=== PATIENT | male | born 1950 | race Caucasian/White ===

== ENCOUNTER → 2016-12-26 | Outpatient (CLI) | payer BC ==
[2016-12-26 11:42] LABS: BASOPHILS # (AUTO) 0.04 10*3/UL; BASOPHILS % (AUTO) 0.5 % (0-1); EOSINOPHILS # (AUTO) 0.21 10*3/UL; EOSINOPHILS % (AUTO) 2.8 % (0-8); HEMATOCRIT 49.1 % (42.0-52.0); HEMOGLOBIN 17.5 g/dL (14.0-18.0); MEAN CORPUSCULAR HEMOGLOBIN 31.7 PG (27-31); MEAN CORPUSCULAR HGB CONC 35.6 g/dL (33-37); MEAN CORPUSCULAR VOLUME 88.9 FL (80-90); MEAN PLATELET VOLUME 12.3 FL (7.4-12.2); MONOCYTES # (AUTO) 0.61 10*3/UL (0.3-0.8); MONOCYTES % (AUTO) 8.1 % (5-15); NEUTROPHILS # (AUTO) 5.23 10*3/UL; NEUTROPHILS % (AUTO) 69.6 % (50-80); RED BLOOD COUNT 5.52 10^6/uL (4.70-6.10)
[2016-12-26 11:43] LABS: BLOOD UREA NITROGEN 25 mg/dL (7-22); BUN/CREATININE RATIO 22.72 (6-20); EST GLOMERULAR FILTRATION > 60 (>60 ml/min/1.73m(2)); SERUM ALBUMIN 4.7 g/dL (3.5-4.8)
[2016-12-26 11:44] LABS: CHOL/HDL RATIO 4.01 RATIO (0-4.0); LDL CHOLESTEROL,CALCULATED 146.4 mg/dL
[2016-12-26 12:04] LABS: PLATELET MORPHOLOGY COMMENT NORMAL MORPHOLOGY (NORM); RBC MORPHOLOGY COMMENT NORMAL MORPHOLOGY (NORM); WBC MORPHOLOGY COMMENT NORMAL MORPHOLOGY (NORM)
[2016-12-26 12:10] LABS: BILIRUBIN,URINE NEGATIVE (NEG); CLARITY,URINE CLEAR (CLEAR); COLOR,URINE YELLOW; GLUCOSE, URINE (UA) NEGATIVE (NEG); NITRATE,URINE NEGATIVE (NEG); OCCULT BLOOD,URINE NEGATIVE (NEG); PH,URINE 7.5 (5.0-8.5); PROTEIN,URINE NEGATIVE (NEG); UROBILINOGEN,URINE 0.2 mg/dL (0.2)
[2016-12-26 12:13] LABS: RBC,URINE 0 /hpf; SQUAMOUS EPITHELIAL CELL,UR RARE; WBC,URINE 0
[2016-12-26 16:06] LABS: URINE SAMPLE TYPE VOIDED SPECIMEN
== END ==
LOC: MOB LAB 10:01
DX: I10 Essential (primary) hypertension (principal); K21.9 Gastro-esophageal reflux disease without esophagitis; E78.5 Hyperlipidemia, unspecified; E55.9 Vitamin D deficiency, unspecified; Z12.5 Encounter for screening for malignant neoplasm of prostate
CPT/HCPCS: 36415; 80053; 80061; 81001; 82306; 84443; 85025; G0103

== ENCOUNTER 2017-07-23 10:13 | Inpatient (IN) ==
[~2017-07-23 10:13] MED LIST: BUPIVACAINE SPLASH ONE; BUPivacaine Liposome/PF (Exparel) Inj 20ml vial INFIL ONE; KETOROLAC SPLASH ONE; LIDOCAINE W/ SODIUM BICARB 0.5 ML SYR ONE; LIDOCAINE W/ SODIUM BICARB 0.5 ML SYR SUBD ONE; Lactated Ringers 1,000 ML PRIMARY IV ONE; MORPHINE SPLASH ONE; TRANEXAMIC ACID 1,000 MG / 10 ML VIAL ONE; Tranexamic Acid 1,000 MG in Sodium Chloride 0.9% 100 ML IV SCH; ceFAZolin Inj 2gm (Premix) 0 GM/0 ML BAG IV ONE; ceFAZolin Inj 2gm (Premix) 2 GM/50 ML BAG IV ONE
[2017-07-23] MEDS ORDERED: Sodium Chloride 0.9% 0 ML ONE ×2 (10:15)
[2017-07-23] MEDS ORDERED: BUPivacaine Liposome/PF (Exparel) Inj 20ml vial INFIL ONE (10:17)
[2017-07-23] MEDS ORDERED: Sodium Chloride 0.9% vial 0 ML ONE (10:17)
[2017-07-23] MEDS ORDERED: Gentamicin Inj 40 MG/ML VIAL ONE (10:17)
[2017-07-23] MEDS: Lactated Ringers 1,000 ML PRIMARY IV SCH (10:27)
[2017-07-26] MEDS ORDERED: Tranexamic Acid 1,000 MG in Sodium Chloride 0.9% 100 ML IV SCH (06:00)
[2017-07-26] MEDS ORDERED: MORPHINE SPLASH ONE ×3 (06:00)
[2017-07-26] MEDS ORDERED: LIDOCAINE W/ SODIUM BICARB 0.5 ML SYR SUBD ONE (06:00)
[2017-07-26] MEDS ORDERED: BUPivacaine Liposome/PF (Exparel) Inj 20ml vial INFIL ONE ×2 (06:00→11:52)
[2017-07-26] MEDS ORDERED: BUPIVACAINE SPLASH ONE ×3 (06:00)
[2017-07-26] MEDS ORDERED: ceFAZolin Inj 2gm (Premix) 2 GM/50 ML BAG IV ONE (06:00)
[2017-07-26] MEDS ORDERED: KETOROLAC SPLASH ONE ×3 (06:00)
[2017-07-26] MEDS: Lactated Ringers 1,000 ML PRIMARY IV SCH ×3 (10:25→20:34)
[2017-07-26 11:10] LABS: BILIRUBIN,URINE NEGATIVE (NEG); CLARITY,URINE CLEAR (CLEAR); COLOR,URINE YELLOW (Y); GLUCOSE, URINE (UA) NEGATIVE (NEG); OCCULT BLOOD,URINE NEGATIVE (NEG); PROTEIN,URINE NEGATIVE (NEG); UROBILINOGEN,URINE 0.2 EU/dL (0.2)
[2017-07-26] MEDS ORDERED: DEXAMETHASONE PF 10 MG/1 ML VIAL ONE (11:20)
[2017-07-26] MEDS ORDERED: fentaNYL Inj 250 MCG/5 ML VIAL ONE (11:20)
[2017-07-26] MEDS ORDERED: BUPIVACAINE 0.5% W/EPI MPF -30 ML VIAL IV ONE (11:21)
[2017-07-26] MEDS ORDERED: MIDAZOLAM 5 MG/1 ML ONE (11:21)
[2017-07-26] MEDS ORDERED: Sodium Chloride 0.9% vial 40 ML ONE (11:52)
[2017-07-26] MEDS ORDERED: BACITRACIN 50,000 UNIT VIAL IRRIG ONE (11:52)
[2017-07-26] MEDS ORDERED: Sodium Chloride 0.9% 0 ML ONE (11:59)
[2017-07-26] MEDS ORDERED: Sodium Chloride 0.9% 250 ML IV ONE (11:59)
[2017-07-26] MEDS ORDERED: ROCURONIUM 10 MG/1 ML - 5 ML VIAL IVP ONE (12:28)
[2017-07-26] MEDS ORDERED: LIDOCAINE MPF 2% - 5 ML (20 MG/1 ML) ONE (12:29)
[2017-07-26] MEDS ORDERED: KETAMINE HCL 100 MG/ML SYRINGE ONE (12:29)
[2017-07-26] MEDS ORDERED: TRANEXAMIC ACID 1,000 MG / 10 ML VIAL ONE (13:02)
[2017-07-26] MEDS ORDERED: LIDOCAINE W/ SODIUM BICARB 0.5 ML SYR SUBD PRN (13:51)
[2017-07-26] MEDS ORDERED: HYDROmorphone 2 MG/1 ML IVP PRN ×2 (13:51→17:04)
[2017-07-26] MEDS ORDERED: NORMAL SALINE 10 ML SYRINGE FLUSH IVP PRN ×2 (13:51→17:04)
[2017-07-26] MEDS ORDERED: ATROPINE SULFATE 0.4 MG/1 ML VIAL IVP PRN (13:51)
[2017-07-26] MEDS ORDERED: fentaNYL Inj 100 MCG/2 ML VIAL IVP PRN (13:51)
--- NOTE | 2017-07-26 13:58 | CRNA.PROCE ---
Nerve Block Documentation - - Safety Measures: Time Out Taken, Site Verified - - Type of Nerve Block Used: Right Adductor Canal Nerve Block (Analgesic block for Right Uni.) Position for Nerve Block: Supine Moniters Used During Block: EKG, SPO2, NIBP Oxygen Supplemented: Yes Sedation Used - Enter Amount in Comment Field [ANES.SEDAT]: Midazolam (mg): Yes (2.5), Fentanyl (mcg): Yes (100) Skin Prep Used: ChloroPrep (Twice) Draped: No Technique: Ultrasound Nerve Block Needle Used: EchoBright 100 mm Local Anesthetic - Enter Amt in Comment Field [ANES.LOCNB]: 0.5 % Bupivicaine with Epinephrine 1:200,000 (mL): Yes (30 ml ) Additives to Nerve Blocks: Dexamethasone (mg): Yes (10) Anesthesia Time - Other Weight: 100.244 kg Height: 5 ft 9 in Body Mass Index (BMI): 32.6
[2017-07-26] MEDS ORDERED: Lactated Ringers 1,000 ML PRIMARY IV SCH (14:00)
--- NOTE | 2017-07-26 14:00 | CRNA.PROGR ---
Post Anesthesia Phase II - Post Anesthesia Phase II Patient Stable and Discharged To: Med/Surg Care Assumed By Surgeon: Trev Krishnamurthy MD Temperature: 98.3 F Pulse Rate: 79 Respiratory Rate: 12 Blood Pressure: 96/66 Pulse Ox: 94 Total Matias Score at Discharge: 9 Post Anesthesia Discharge Criteria Met: Yes
--- NOTE | 2017-07-26 14:00 | CRNA.PROGR ---
Anesthesia Time - - Start date: 07/26/17 End date: 07/26/17 - Procedure/Recovery Time Anesthesia : Time In: 12:45 Anesthesia : Time Out: 16:13 Anesthesia : Total Time: 208 - Block Time PreOp Block : Time In: 11:23 PreOp Block : Time Out: 11:50 PreOp Block : Total Time: 27 - Total Anesthesia Time Total Anesthesia Time (minutes): 235 - Other Weight: 100.244 kg Height: 5 ft 9 in Body Mass Index (BMI): 32.6 Physical Status: P2 Anesthesia Type: General Anesthesia : ET (Gerd, Anxiety, Hep c, HTN)
--- NOTE | 2017-07-26 14:01 | CRNA.PROGR ---
Anesthesia Recovery Phase I - Post Anesthesia Evaluation Patient's Condition on Arrival in Phase I: Stable Patient's Condition on Arrival in Phase II: Stable Pain Level: 0
[2017-07-26] MEDS ORDERED: GLYCOPYRROLATE 0.2 MG/1 ML VIAL ONE (14:09)
[2017-07-26] MEDS ORDERED: Lactated Ringers 1,000 ML PRIMARY IV ONE ×2 (14:42→17:18)
--- NOTE | 2017-07-26 16:36 | ORTHO.OP ---
- - -: See Dictated Operative Report Procedure Codes - Lower Extremity/Knee Procedures Primary Lower Extremity Procedure Code: 30861 : [facility] (Gabrielle LINDSAY assisted)
[2017-07-26] MEDS ORDERED: MAG HYDROX/AL HYDROX/SIMETH 30 ML SUSP PO PRN (17:04)
[2017-07-26] MEDS ORDERED: Prochlorperazine Tab 10 MG TAB PO PRN (17:04)
[2017-07-26] MEDS ORDERED: ONDANSETRON 4 MG/2 ML VIAL IVP PRN (17:04)
[2017-07-26] MEDS ORDERED: CALCIUM CARBONATE 500 MG (TUMS) CHEWABLE TABLET PO PRN (17:04)
[2017-07-26] MEDS ORDERED: LIDOCAINE HCL 2 % 10 ML JELLY URO-JECT TOPICAL PRN (17:04)
[2017-07-26] MEDS ORDERED: ALBUTEROL SULFATE 8.5 GM HFA INHALER INH PRN ×2 (17:04→19:00)
[2017-07-26] MEDS ORDERED: TESTOSTERONE CYPIONATE 300 MG IM SCH (17:04)
[2017-07-26] MEDS ORDERED: BISACODYL 5 MG TABLET PO PRN (17:04)
[2017-07-26] MEDS ORDERED: IBUPROFEN 400 MG TABLET PO PRN (17:04)
[2017-07-26] MEDS ORDERED: ACETAMINOPHEN 325 MG TABLET PO PRN (17:04)
[2017-07-26] MEDS ORDERED: ceFAZolin Inj 2gm (Premix) 2 GM/50 ML BAG IV SCH (17:04)
[2017-07-26] MEDS ORDERED: BISACODYL 10 MG SUPPOSITORY RECTAL PRN (17:04)
[2017-07-26] MEDS ORDERED: Ondansetron ODT Tab 8 MG TAB PO PRN (17:04)
[2017-07-26] MEDS ORDERED: diphenhydrAMINE 25 MG CAPSULE PO PRN (17:04)
--- NOTE | 2017-07-26 18:11 | ORTHO.PROG ---
Last Taken Vital Signs: Vital Signs - Last Taken Temperature 97.1 F 07/26/17 17:45 Pulse Rate 93 07/26/17 17:45 Respiratory Rate 18 07/26/17 17:45 Blood Pressure 159/106 07/26/17 17:45 Pulse Ox 92 07/26/17 17:45 Subjective: Patient notes he is having no pain in the right knee, patient has an adductor block and also had local injected into the soft tissue around the joint keeping out of the joint. Objective: Patient with good range of motion of the knee good motion of the foot and ankle. His sensory exam seems to be reasonable. Good pulses brisk refill dressing is clean and dry nonfocal neurologic exam. Vital Signs (24 hrs) Temp Pulse Pulse Resp BP BP Pulse Ox 07/26/17 18:00 97.1 F 92 18 140/107 93 07/26/17 17:45 97.1 F 93 18 159/106 92 07/26/17 17:30 97 F 92 18 148/109 93 07/26/17 17:15 97 F 92 20 131/94 93 07/26/17 17:05 97.0 F 95 18 136/91 90 07/26/17 17:00 97 F 95 18 136/91 90 07/26/17 16:46 97.0 F 95 15 117/95 95 07/26/17 16:42 97.0 F 97 21 128/102 97 07/26/17 16:38 98.3 F 79 12 96/66 94 07/26/17 16:38 97.1 F 96 16 120/96 95 07/26/17 16:32 97.0 F 95 16 111/81 90 07/26/17 16:28 97.0 F 94 14 93/80 89 07/26/17 16:24 97.0 F 94 13 107/85 92 07/26/17 16:22 92 15 107/85 92 07/26/17 16:20 92 12 91 07/26/17 16:18 96 18 103/72 91 07/26/17 16:16 13 91 07/26/17 16:14 81 7 L 96/66 89 07/26/17 16:12 80 0 L 96/66 90 07/26/17 16:10 80 10 L 87 07/26/17 16:08 98.3 F 81 8 L 90/59 86 07/26/17 16:06 14 07/26/17 10:40 97.5 F 63 16 125/89 94 X-rays show components in place with good cement bone cement prosthesis interface Assessment: Right unicompartmental knee replacement doing well Plan: DVT prophylaxis with pneumatic some aspirin Physical therapy and occupational therapy. Pain control with oral and IV medication as needed.
--- NOTE | 2017-07-26 18:19 | CONSULT ---
Consult Note - Consult Consult Date: 07/26/17 Reason for Consult: PostOp Consulation : Ortho Requesting Physician: Dr. Krishnamurthy Primary Care Provider: Rosalind Schuster MD HPI - History of Present Illness Date of Service: 07/26/17 Time of Service: 18:10 Chief Complaint: knee pain History of Present Illness: This is a 66 YO male with HTN, hypercholesterolemia, and osteoarthritis in knees bilaterally presents today for unipolar knee replacement in right knee today. Please see Dr. Krishnamurthy's note regarding the procedure. Post operatively, the patient does not have chest pain, shortness of breath, nausea or vomiting. The patient also had a negative stress test in November of 2016. He denies any pain but did have a block in surgery today. His blood pressure is controlled. He is on three medications for blood pressure. No history of CAD or stroke. Past Medical History Medical History: 1. HTN. 2. hypercholesterolemia. 3. osteoarthritis. 4. low testosterone. 5. GERD. 6. Depression, well controlled. Surgical History: 1. outside of knee surgery today, none Pertinent Family History: significant for heart attack in in father, and stroke in mother. Past Social History: almost 10 years. second marriage. had one son who is . no smoking tobacco, drinks occasional alcohol. lives in [place], [place]. Tobacco Use: Former Smoker In the Past 12 Months, Have Used or Abuse Any of the Following Substance: None Alcohol Use: Occasionally Review of Systems - Respiratory Respiratory: REPORTS: Negative System Review - Cardiovascular Cardiovascular: REPORTS: Negative System Review - Gastrointestinal Gastrointestinal / Abdominal: REPORTS: Negative System Review - Genitourinary Genitourinary: REPORTS: Negative System Review - Musculoskeletal Musculoskeletal: REPORTS: See HPI - Neurological Neurologic: REPORTS: Negative System Review Medication / Allergies Home Medications: Home Medications 3 Medication Instructions Recorded Confirmed Type Calcium Carbonate [Calcium] 1 tab PO QD #90 tab 12/28/14 07/26/17 History Multivitamin [Multivitamins] 1 tab PO DAILY #90 tab 12/28/14 07/26/17 History Mv-Min/Vit C/Glu/Rose HCl/Hc124 1 tab PO QD #30 tab 03/23/15 07/26/17 History [Airborne Tablet Chewable] carvedilol 25 mg tablet 25 mg PO BID #180 tab 01/15/17 07/26/17 Rx olmesartan 40 mg tablet 40 mg PO QDAY #90 tab 01/15/17 07/26/17 Rx testosterone cypionate 200 mg/mL 300 mg IM MONTHLY #4 vial 01/15/17 07/26/17 Rx intramuscular oil cetirizine 10 mg capsule 10 mg PO DAILY cap 04/25/17 07/26/17 History cholecalciferol (vitamin D3) 5,000 5,000 unit PO QD #90 cap 04/25/17 07/26/17 History unit capsule fexofenadine 180 mg tablet 180 mg PO DAILY tab 04/25/17 07/26/17 History vitamin E mixed 400 unit capsule 400 unit PO QD #30 cap 04/25/17 07/26/17 History rosuvastatin 10 mg tablet 10 mg PO QDAY #90 tab 05/04/17 07/26/17 Rx escitalopram 20 mg tablet 20 mg PO DAILY #90 tab 05/21/17 07/26/17 Rx esomeprazole magnesium 40 mg 40 mg PO QD #90 cap 05/21/17 07/26/17 Rx capsule,delayed release nifedipine ER 30 mg 30 mg PO BID #10 tab 05/25/17 07/26/17 Rx tablet,extended release 24 hr Albuterol Sulfate [Proair Hfa] 2 puff INH ONCE PRN 07/26/17 07/26/17 History Allergies/Adverse Reactions: Allergies 3 Allergy/AdvReac Type Severity Reaction Status Date / Time No Known Allergies Allergy Verified 07/26/17 06:39 Exam - Vitals Vital Signs: Vital Signs Temperature 97.1 F Temperature Source Temporal Artery Scan Pulse Rate [Pulse Oximeter] 93 Pulse Rate 95 Respiratory Rate 18 Blood Pressure [Right Arm] 159/106 Blood Pressure 117/95 Pulse Ox 92 Oxygen Flow Rate 3 Oxygen Delivery Method Room Air Height 5 ft 9 in Weight 221 lb - General General Appearance: No Acute Distress, Cooperative - Head Head Exam: Normal Inspection, Normocephalic, Atraumatic - Eye Eye Exam: POSITIVE: No Scleral Icterus - ENT ENT Exam: POSITIVE: Mucous Membranes Moist - Neck Neck Exam: Normal Inspection, No Tenderness, No Lymphadenopathy, No Thyromegaly - Respiratory Respiratory Exam: POSITIVE: Clear to Auscultation - Bilaterally, Breathing Non Labored, Normal to Percussion and Palpation - Cardiovascular Cardiovascular Exam: POSITIVE: RRR, No Murmur, No Clicks, No Gallops, No Rubs, No JVD - GI/Abdominal GI/Abdominal Exam: POSITIVE: Normal Bowel Sounds, Non Tender, Non Distended, Soft - Rectal Rectal Exam: POSITIVE: Deferred - External Exam: POSITIVE: Deferred Exam: POSITIVE: Deferred - Extremities Extremities Exam: POSITIVE: No Clubbing Present, No Edema Present, No Cyanosis Present Additional Extremities Exam Details: right knee dressed, dressing is clean, dry, intact ice in place. - Neurological Neurological Exam: POSITIVE: Alert, Oriented x 3, No Facial Droop, Speech Intact / Clear Results - Labs Additional Lab Results: Laboratory Results 07/26/17 07/26/17 Range/Units 10:49 11:06 Ur Collection Type Pending Urine Color Yellow (Y) Urine Clarity Clear (CLEAR) Urine pH 7.0 (5.0-8.5) Ur Specific [place] 1.015 (1.005-1.030) Urine Protein Negative (NEG) mg/dl Urine Glucose (UA) Negative (NEG) mg/dL Urine Ketones Negative (NEG) Urine Occult Blood Negative (NEG) Urine Nitrate Negative (NEG) Urine Bilirubin Negative (NEG) Urine Urobilinogen 0.2 (0.2) EU/dL Ur Leukocyte Esterase Negative (NEG) Blood Type AB POSITIVE Antibody Screen Negative 07/06/17 12:38 Sodium 140 Potassium 4.6 Chloride 99 Carbon Dioxide 26 BUN 23 H Creatinine 1.5 Glucose 105 Calculated Osmolality 293.0 H Calcium 9.8 Total Bilirubin 1.0 AST 27 ALT 43 Alkaline Phosphatase 51 Total Protein 8.3 H Albumin 5.0 H Globulin 3.3 Albumin/Globulin Ratio 1.50 - EKG Data -: EKG Interpreted by Me Rate: Bradycardia (from 07/06/2017) Assessment and Plan - Patient Problems (1) Hypertension Current Visit: Yes Status: Chronic Code(s): I10 - Essential (primary) hypertension Qualifiers: Hypertension type: essential hypertension Qualified Code(s): I10 - Essential (primary) hypertension; I10 - Essential (primary) hypertension; I10 - Essential (primary) hypertension (2) Hypercholesterolemia Current Visit: Yes Status: Chronic Code(s): E78.00 - Pure hypercholesterolemia, unspecified (3) Arthritis of right knee Current Visit: Yes Status: Acute Code(s): M17.11 - Unilateral primary osteoarthritis, right knee (4) GERD (gastroesophageal reflux disease) Current Visit: Yes Status: Chronic Onset Date: 12/28/14 Code(s): K21.9 - Gastro-esophageal reflux disease without esophagitis (5) Anxiety and depression Current Visit: Yes Status: Chronic Onset Date: 12/28/14 Code(s): F41.8 - Other specified anxiety disorders (6) Low testosterone Current Visit: Yes Status: Chronic Code(s): E34.9 - Endocrine disorder, unspecified - Assessment / Plan Additional Assessment/Plan Details: continue home medications, but hold benicar with perioperative renal failure and hypotension associations PT and OT as per Dr. Krishnamurthy monitor BP DVT prophylaxis as per ortho. Thank you for this consult, will be glad to advise on HTN, GERD, and medical issues in setting of this knee surgery.
[2017-07-26] MEDS: CARVEDILOL 12.5 MG TABLET PO SCH (20:03)
[2017-07-26] MEDS: Rosuvastatin Tab 20 MG TAB PO SCH (20:03)
[2017-07-26] MEDS: LORATADINE 10 MG TABLET PO SCH (20:04)
[2017-07-26] MEDS: DOCUSATE 100 MG CAPSULE PO SCH (20:04)
[2017-07-26] MEDS: NIFEdipine 30 MG ER 24H TABLET PO SCH (20:04)
[2017-07-26] MEDS: ceFAZolin Inj 2gm (Premix) 2 GM/50 ML BAG IV SCH (20:11)
[2017-07-26] MEDS: HYDROcodone-APAP 7.5 MG-325 MG TABLET PO PRN (21:12)
--- NOTE | 2017-07-26 21:17 | DI ---
XR KNEE 1 OR 2 VWS,07/26/2017 4:00 PM: Clinical History: Status post unicompartmental arthroplasty. Previous Exam: June 14, 2017 Findings: AP and lateral views of the right knee are obtained, and demonstrate postsurgical changes consistent with a right medial unicompartmental arthroplasty. Overlying plaster is noted. There is free air in a knee joint effusion consistent with recent postsur gical change. There is no fracture identified. Impression: Status post right medial compartment arthroplasty.
[2017-07-27 05:09] LABS: Hematocrit [HCT] 43.3 % (42.0-52.0); Hemoglobin [HGB] 15.4 g/dL (14.0-18.0); MEAN CORPUSCULAR HEMOGLOBIN 31.6 PG (27-31); MEAN CORPUSCULAR HGB CONC 35.6 g/dL (33-37); MEAN CORPUSCULAR VOLUME 88.7 FL (80-90); MEAN PLATELET VOLUME 11.7 FL (7.4-12.2); RED BLOOD COUNT 4.88 10^6/uL (4.70-6.10)
[2017-07-27 05:11] LABS: BLOOD UREA NITROGEN 21 mg/dL (7-22)
[2017-07-27] MEDS: ceFAZolin Inj 2gm (Premix) 2 GM/50 ML BAG IV SCH (06:02)
[2017-07-27 07:16] LABS: URINE SAMPLE TYPE CLEAN CATCH URINE
[2017-07-27] MEDS: CALCIUM CARBONATE 500 MG (TUMS) CHEWABLE TABLET PO SCH (08:29)
[2017-07-27] MEDS: ESCITALOPRAM 10 MG TABLET PO SCH (08:30)
[2017-07-27] MEDS: CHOLECALCIFEROL 1000 IU TABLET PO SCH (08:30)
[2017-07-27] MEDS: LORATADINE 10 MG TABLET PO SCH ×2 (08:31→20:05)
[2017-07-27] MEDS: OMEPRAZOLE 40 MG CAPSULE PO SCH (08:31)
[2017-07-27] MEDS: NIFEdipine 30 MG ER 24H TABLET PO SCH ×2 (08:32→20:14)
[2017-07-27] MEDS: DOCUSATE 100 MG CAPSULE PO SCH ×2 (08:32→20:14)
[2017-07-27] MEDS: ASPIRIN 325 MG EC TABLET PO SCH ×2 (08:32→20:19)
[2017-07-27] MEDS: Multivitamin Tab 1 TAB PO SCH (08:32)
[2017-07-27] MEDS: Vitamin E Cap 400 IU CAP PO SCH (08:33)
[2017-07-27] MEDS: CARVEDILOL 12.5 MG TABLET PO SCH ×2 (08:34→20:14)
--- NOTE | 2017-07-27 08:57 | ORTHO.PROG ---
Last Taken Vital Signs: Vital Signs - Last Taken Temperature 97.8 F 07/27/17 08:06 Pulse Rate 101 H 07/27/17 08:06 Respiratory Rate 18 07/27/17 08:06 Blood Pressure 122/87 07/27/17 08:06 Pulse Ox 93 07/27/17 08:06 Subjective: Patient is doing very well with essentially no pain he states it might be one half appointment Objective: Examination shows that the patient has good motion of the foot and ankle dressing is in place. His motor and sensory exam seems to be intact. Laboratory Results 07/26/17 07/26/17 07/27/17 Range/Units 10:49 11:06 04:06 WBC 11.75 H (4.8-10.8) 10^3/uL RBC 4.88 (4.70-6.10) 10^6/uL Hgb 15.4 (14.0-18.0) g/dL Hct 43.3 (42.0-52.0) % MCV 88.7 (80-90) FL MCH 31.6 H (27-31) PG MCHC 35.6 (33-37) g/dL RDW Std Deviation 43.8 (39-50) fL RDW Coeff of Dinesh 13.8 (11.5-14.5) % Plt Count 135 L (140-350) 10*3/uL MPV 11.7 (7.4-12.2) FL Sodium (135-145) meq/L Potassium (3.8-5.2) meq/L Chloride (98-112) meq/L Carbon Dioxide (23-33) meq/L Anion Gap (5-20) BUN (7-22) mg/dL Creatinine (0.70-1.50) mg/dL Estimated GFR (>60 ml/min/1.73m(2)) BUN/Creatinine Ratio (6-20) Glucose (78-110) mg/dL Calculated Osmolality (267-292) mOsm/kg Calcium (8.7-10.7) mg/dL Ur Collection Type Clean catch urine Urine Color Yellow (Y) Urine Clarity Clear (CLEAR) Urine pH 7.0 (5.0-8.5) Ur Specific [place] 1.015 (1.005-1.030) Urine Protein Negative (NEG) mg/dl Urine Glucose (UA) Negative (NEG) mg/dL Urine Ketones Negative (NEG) Urine Occult Blood Negative (NEG) Urine Nitrate Negative (NEG) Urine Bilirubin Negative (NEG) Urine Urobilinogen 0.2 (0.2) EU/dL Ur Leukocyte Esterase Negative (NEG) Blood Type AB POSITIVE Antibody Screen Negative 07/27/17 Range/Units 04:06 WBC (4.8-10.8) 10^3/uL RBC (4.70-6.10) 10^6/uL Hgb (14.0-18.0) g/dL Hct (42.0-52.0) % MCV (80-90) FL MCH (27-31) PG MCHC (33-37) g/dL RDW Std Deviation (39-50) fL RDW Coeff of Dinesh (11.5-14.5) % Plt Count (140-350) 10*3/uL MPV (7.4-12.2) FL Sodium 135 (135-145) meq/L Potassium 4.5 (3.8-5.2) meq/L Chloride 99 (98-112) meq/L Carbon Dioxide 23 (23-33) meq/L Anion Gap 13 (5-20) BUN 21 (7-22) mg/dL Creatinine 1.0 (0.70-1.50) mg/dL Estimated GFR > 60 (>60 ml/min/1.73m(2)) BUN/Creatinine Ratio 21.00 H (6-20) Glucose 132 H (78-110) mg/dL Calculated Osmolality 284.0 (267-292) mOsm/kg Calcium 9.4 (8.7-10.7) mg/dL Ur Collection Type Urine Color (Y) Urine Clarity (CLEAR) Urine pH (5.0-8.5) Ur Specific [place] (1.005-1.030) Urine Protein (NEG) mg/dl Urine Glucose (UA) (NEG) mg/dL Urine Ketones (NEG) Urine Occult Blood (NEG) Urine Nitrate (NEG) Urine Bilirubin (NEG) Urine Urobilinogen (0.2) EU/dL Ur Leukocyte Esterase (NEG) Blood Type Antibody Screen Vital Signs (24 hrs) Temp Pulse Pulse Resp BP BP BP 07/27/17 08:06 97.8 F 101 H 18 122/87 07/27/17 04:48 03/23/18 04:02 97.4 F 94 20 144/99 07/26/17 23:59 98.0 F 92 20 141/98 07/26/17 20:43 97.6 F 99 20 145/106 07/26/17 19:45 97.3 F 104 H 20 156/105 07/26/17 19:00 99 20 07/26/17 18:45 97.6 F 98 20 138/100 07/26/17 18:18 97.1 F 99 18 152/110 07/26/17 18:00 97.1 F 92 18 140/107 07/26/17 17:45 97.1 F 93 18 159/106 07/26/17 17:30 97 F 92 18 148/109 07/26/17 17:15 97 F 92 20 131/94 07/26/17 17:05 97.0 F 95 18 136/91 07/26/17 17:00 97 F 95 18 136/91 07/26/17 16:46 97.0 F 95 15 117/95 07/26/17 16:42 97.0 F 97 21 128/102 07/26/17 16:38 98.3 F 79 12 96/66 07/26/17 16:38 97.1 F 96 16 120/96 07/26/17 16:32 97.0 F 95 16 111/81 07/26/17 16:28 97.0 F 94 14 93/80 07/26/17 16:24 97.0 F 94 13 107/85 07/26/17 16:22 92 15 107/85 07/26/17 16:20 92 12 07/26/17 16:18 96 18 103/72 07/26/17 16:16 13 18 16:14 81 7 L 96/66 07/26/17 16:12 80 0 L 96/66 18 16:10 80 10 L 07/26/17 16:08 98.3 F 81 8 L 90/59 07/26/17 16:06 14 07/26/17 10:40 97.5 F 63 16 125/89 Pulse Ox 07/27/17 08:06 93 07/27/17 04:48 92 07/27/17 04:02 92 07/26/17 23:59 93 07/26/17 20:43 93 07/26/17 19:45 94 03/22/18 19:00 07/26/17 18:45 93 07/26/17 18:18 92 07/26/17 18:00 93 07/26/17 17:45 92 07/26/17 17:30 93 07/26/17 17:15 93 07/26/17 17:05 90 07/26/17 17:00 90 07/26/17 16:46 95 07/26/17 16:42 97 07/26/17 16:38 94 07/26/17 16:38 95 07/26/17 16:32 90 07/26/17 16:28 89 07/26/17 16:24 92 07/26/17 16:22 92 07/26/17 16:20 91 07/26/17 16:18 91 07/26/17 16:16 91 07/26/17 16:14 89 07/26/17 16:12 90 07/26/17 16:10 87 07/26/17 16:08 86 07/26/17 16:06 07/26/17 10:40 94 Assessment: Right medial unicompartmental knee replacement doing well Plan: (Physical therapy and occupational therapy. Patient pain is well-controlled at the current time but he has oral and IV medication available. Patient will need to do stairs before he goes home since he has a lot of home. We will protect the knee walker and have a look at him this afternoon. Possible discharge home tomorrow if he does well with therapy and his pain is well- controlled. Also barring any medical issues
[2017-07-27] MEDS ORDERED: Olmesartan Tab 40 MG TAB PO SCH (09:00)
[2017-07-27] MEDS: Lactated Ringers 1,000 ML PRIMARY IV SCH (11:30)
[2017-07-27] MEDS: [UNRECOGNIZED DRUG - OTHER] PO SCH (11:30)
--- NOTE | 2017-07-27 11:46 | CRNA.PROGR ---
Anesthesia Note - Progress Notes Anesthesia Progress Note: cheerful, up in chair playing computer games. Has ambulated bed to chair. Has not been down to PT yet. Denies nausea. Denies pain. Pleased with care. Laboratory Results 07/26/17 07/27/17 07/27/17 Range/Units 11:06 04:06 04:06 WBC 11.75 H (4.8-10.8) 10^3/uL RBC 4.88 (4.70-6.10) 10^6/uL Hgb 15.4 (14.0-18.0) g/dL Hct 43.3 (42.0-52.0) % MCV 88.7 (80-90) FL MCH 31.6 H (27-31) PG MCHC 35.6 (33-37) g/dL RDW Std Deviation 43.8 (39-50) fL RDW Coeff of Dinesh 13.8 (11.5-14.5) % Plt Count 135 L (140-350) 10*3/uL MPV 11.7 (7.4-12.2) FL Sodium 135 (135-145) meq/L Potassium 4.5 (3.8-5.2) meq/L Chloride 99 (98-112) meq/L Carbon Dioxide 23 (23-33) meq/L Anion Gap 13 (5-20) BUN 21 (7-22) mg/dL Creatinine 1.0 (0.70-1.50) mg/dL Estimated GFR > 60 (>60 ml/min/1.73m(2)) BUN/Creatinine Ratio 21.00 H (6-20) Glucose 132 H (78-110) mg/dL Calculated Osmolality 284.0 (267-292) mOsm/kg Calcium 9.4 (8.7-10.7) mg/dL Ur Collection Type Clean catch urine No apparent anesthetic difficulties.
--- NOTE | 2017-07-27 12:13 | PDOC(PROG) ---
Interval History: Patient was seen this morning has no complaints he states that he has to clear stairs with physical therapy before he can be discharged Objective : Data - Labs CBC and BMP: 07/27/17 04:06 07/27/17 04:06 Objective : Exam - General General Appearance: Cooperative - Respiratory Respiratory Exam: Clear to Auscultation - Bilaterally, Breathing Non Labored, Normal To Percussion, Normal to Percussion and Palpation - Cardiovascular Cardiovascular Exam: RRR, No Murmur, No Clicks, No Gallops, No Rubs, PMI Non- Displaced - GI/Abdominal GI/Abdominal Exam: Normal Bowel Sounds, Non Tender, Non Distended, Soft, No Masses, No Hepatomegaly, No Splenomegaly, No Organomegaly Assessment and Plan - Patient Problems (1) Hypertension Current Visit: Yes Status: Chronic Comment: Stable at present time Code(s): I10 - Essential (primary) hypertension Qualifiers: Hypertension type: essential hypertension Qualified Code(s): I10 - Essential (primary) hypertension; I10 - Essential (primary) hypertension; I10 - Essential (primary) hypertension (2) Hypercholesterolemia Current Visit: Yes Status: Chronic Comment: Continue meds Code(s): E78.00 - Pure hypercholesterolemia, unspecified (3) Low testosterone Current Visit: Yes Status: Chronic Comment: Continue home meds Code(s): E34.9 - Endocrine disorder, unspecified (4) Anxiety and depression Current Visit: Yes Status: Chronic Onset Date: 12/28/14 Comment: Stable Code(s): F41.8 - Other specified anxiety disorders (5) GERD (gastroesophageal reflux disease) Current Visit: Yes Status: Chronic Onset Date: 12/28/14 Comment: Continue home meds Code(s): K21.9 - Gastro-esophageal reflux disease without esophagitis (6) Arthritis of right knee Current Visit: Yes Status: Acute Comment: Defer to orthopedic surgery and PT Code(s): M17.11 - Unilateral primary osteoarthritis, right knee
[2017-07-27] MEDS: HYDROcodone-APAP 7.5 MG-325 MG TABLET PO PRN ×2 (13:30→20:17)
--- NOTE | 2017-07-27 15:24 | OTI REPORT ---
Thank you for the referral of Aditya Fisher. He was seen on 07/27/17 for an occupational therapy inpatient evaluation status post right unilateral knee replacement. SUBJECTIVE: The patient is a 66-year-old male who had a right uni-knee replacement. The patient does live with his spouse in [place]. 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 He does have a split level home; he has one step to get in and three steps to get into his garage. The patient reports that he is feeling well and he is having minimal pain. PAST MEDICAL HISTORY: Past medical history can be found in the patient's medical record. OBJECTIVE FINDINGS: General observations: The patient was sitting in his chair upon the therapist's arrival. Activities of daily living: The patient was able to dress his lower extremities and upper extremities independently with no adaptive equipment needed. Transfers: The patient was able to complete a sit to stand with mod independence using his walker. The patient is a bit impulsive and is very fast for these movements, but he demonstrated really good safety. Range of motion: The patient's bilateral shoulders demonstrate full range of motion. Strength: The patient's bilateral shoulders demonstrate strength of 5/5. Sensation: No tingling or numbness was noted. The patient did have an adductor block, so a knee immobilizer is not needed. ASSESSMENT: At this time the patient has met all basic total knee goals and will be discharged from OT. TREATMENT PLAN: Patient will be discharged from occupational therapy. INITIAL TREATMENT: Treatment today consisted of the initial evaluation activities only. MUNA
--- NOTE | 2017-07-27 16:16 | PT.PROG ---
Progress Note Progress Note: S. Patient stated that he is feeling good this afternoon. O. Patient ambulated 175 feet to the therapy gym where he had heat to his knee then performed exercises in the form of; heel slides, quad sets, ankle pumps, short arc quads, seated marches, long arc quads, sit to stands all x 15, box step ups with #3 box x 10. Patient ascended and descended 12 stairs and then ambulated 175 feet back to his room where he was left in chair with alarm, call light and cryo cuff. A. Patient tolerated therapy very well however, continues to be slightly impulsive and unaware of safety in some situations, patient required frequent verbal cues to perform stair training properly, he would benefit from one more therapy session to go over safety at home. P. Continue POC.
[2017-07-27] MEDS: Rosuvastatin Tab 20 MG TAB PO SCH (20:14)
[2017-07-28] MEDS: HYDROcodone-APAP 7.5 MG-325 MG TABLET PO PRN (00:48)
[2017-07-28] MEDS: OMEPRAZOLE 40 MG CAPSULE PO SCH ×2 (04:04→06:12)
[2017-07-28 05:26] LABS: BLOOD UREA NITROGEN 20 mg/dL (7-22); BUN/CREATININE RATIO 18.18 (6-20)
[2017-07-28 05:27] LABS: Hematocrit [HCT] 39.4 % (42.0-52.0); Hemoglobin [HGB] 13.8 g/dL (14.0-18.0); MEAN CORPUSCULAR HEMOGLOBIN 31.5 PG (27-31); MEAN PLATELET VOLUME 12.1 FL (7.4-12.2); RED BLOOD COUNT 4.38 10^6/uL (4.70-6.10)
[2017-07-28 07:42] VITALS: RESP 18
[2017-07-28] MEDS: CHOLECALCIFEROL 1000 IU TABLET PO SCH (08:26)
[2017-07-28] MEDS: CALCIUM CARBONATE 500 MG (TUMS) CHEWABLE TABLET PO SCH (08:26)
[2017-07-28] MEDS: Vitamin E Cap 400 IU CAP PO SCH (08:26)
[2017-07-28] MEDS: LORATADINE 10 MG TABLET PO SCH (08:26)
[2017-07-28] MEDS: ESCITALOPRAM 10 MG TABLET PO SCH (08:26)
[2017-07-28] MEDS: CARVEDILOL 12.5 MG TABLET PO SCH (08:26)
[2017-07-28] MEDS: NIFEdipine 30 MG ER 24H TABLET PO SCH (08:26)
[2017-07-28] MEDS: DOCUSATE 100 MG CAPSULE PO SCH (08:26)
[2017-07-28] MEDS: ASPIRIN 325 MG EC TABLET PO SCH (08:26)
[2017-07-28] MEDS: Multivitamin Tab 1 TAB PO SCH (08:26)
[2017-07-28] MEDS: Lactated Ringers 1,000 ML PRIMARY IV SCH ×2 (09:08→09:09)
[2017-07-28] MEDS: [UNRECOGNIZED DRUG - OTHER] PO SCH (09:56)
--- NOTE | 2017-07-28 10:36 | ORTHO.PROG ---
Last Taken Vital Signs: Vital Signs - Last Taken Temperature 98.6 F 07/28/17 07:38 Pulse Rate 82 07/28/17 07:38 Respiratory Rate 18 07/28/17 07:38 Blood Pressure 128/78 07/28/17 07:38 Pulse Ox 92 07/28/17 07:38 Subjective: Patient with right unicompartmental knee replacement with no pain Objective: Dressing was removed incision is clean and dry, patient with motor and sensory exam intact no distal swelling or edema, popliteal adductor hiatus or thigh pain. Abnormal Lab Results (Last 24 Hours) Range/Units 07/28/17 04:00 RBC (4.70-6.10) 10^6/uL 4.38 L Hgb (14.0-18.0) g/dL 13.8 L Hct (42.0-52.0) % 39.4 L MCH (27-31) PG 31.5 H Plt Count (140-350) 10*3/uL 120 L Laboratory Results 07/28/17 07/28/17 Range/Units 04:00 04:00 WBC 7.78 (4.8-10.8) 10^3/uL RBC 4.38 L (4.70-6.10) 10^6/uL Hgb 13.8 L (14.0-18.0) g/dL Hct 39.4 L (42.0-52.0) % MCV 90.0 (80-90) FL MCH 31.5 H (27-31) PG MCHC 35.0 (33-37) g/dL RDW Std Deviation 44.9 (39-50) fL RDW Coeff of Dinesh 14.2 (11.5-14.5) % Plt Count 120 L (140-350) 10*3/uL MPV 12.1 (7.4-12.2) FL Sodium 139 (135-145) meq/L Potassium 4.0 (3.8-5.2) meq/L Chloride 101 (98-112) meq/L Carbon Dioxide 25 (23-33) meq/L Anion Gap 13 (5-20) BUN 20 (7-22) mg/dL Creatinine 1.1 (0.70-1.50) mg/dL Estimated GFR > 60 (>60 ml/min/1.73m(2)) BUN/Creatinine Ratio 18.18 (6-20) Glucose 97 (78-110) mg/dL Calculated Osmolality 290.0 (267-292) mOsm/kg Calcium 8.9 (8.7-10.7) mg/dL Intake and Output - 8hrs 07/27/17 07/27/17 07/28/17 07/28/17 13:59 21:59 05:59 13:59 Intake: Intake Oral Amount 720 / 720 1740 / 1740 200 / 200 600 / 600 Breakfast 240 / 240 240 / 240 Dinner 240 / 240 Lunch 480 / 480 Output: Output, Urine Amount 550 / 550 675 / 675 Other: Percent Meal Consumed Breakfast 100% 100% Dinner 100% Lunch 100% Output,Number of Bowel 1 Movements Number of Voids 1 1 Weight 100.607 kg 101.333 kg Weight Measurement Method Standing Scale Standing Scale Vital Signs (24 hrs) Temp Pulse Resp BP BP Pulse Ox 07/28/17 07:38 98.6 F 82 18 128/78 92 07/28/17 04:42 97.9 F 82 20 128/88 91 07/28/17 04:01 97.9 F 07/28/17 00:47 97.9 F 82 20 128/88 91 07/27/17 21:00 97.7 F 85 20 127/77 94 07/27/17 19:00 85 20 07/27/17 17:00 97.8 F 79 20 136/90 92 07/27/17 13:00 98.5 F 86 16 133/81 92 Assessment: Right unicompartmental knee replacement doing well Plan: Patient did very well in therapy didn't stairs. Patient will be sent home today to continue outpatient therapy. We will see him back at the beginning of the week for replacement of the left unicompartmental knee replacement provided his skin continues to clears up in the posterior aspect where he initially had a scratch by his dog it looks excellent today. Patient will work the plasma flow pneumatic compression devices at home as well as aspirin for DVT prophylaxis.
--- NOTE | 2017-07-28 11:00 | PT.PROG ---
Progress Note Progress Note: S: Pt states that he is doing well this morning with minimal c/o pain. Pt willing to participate with PT. O: Tx consisted of: amb x 150 ft with SBA x 1 for safety and use of walker. Pt performed 1 flight of stairs with walker and SBA x 1 and only required 1 v/c for proper AD placement. Pt received MHP x 20 min to R knee prior to instruction in ther ex with 10x the following: quad sets, heel slides, SLR, SAQ , hip abd/add, 4 way ankle and seated LAQ's. Pt received gentle seated passive motion for knee flexion and extension. Pt amb x 150 ft back to room and was left in his chair with call light. A: Pt tolerated treatment very well and demonstrated improved safety awareness when ambulating with walker today. Pt has met all goals for therapy. P: D/c from physical therapy.
--- NOTE | 2017-07-28 11:02 | DCSUMMARY ---
Hospitalization Summary Hospital Course: Final Discharge Diagnosis: Current Visit Problems Problem Status Onset Code Arthritis of right knee Acute M17.11 GERD (gastroesophageal reflux disease) Chronic 12/28/14 K21.9 Anxiety and depression Chronic 12/28/14 F41.8 Low testosterone Chronic E34.9 Hypercholesterolemia Chronic E78.00 Hypertension Chronic I10 Diagnostic Data, Laboratory Data, and Procedures of Signifigance: CBC and BMP 07/28/17 04:00 07/28/17 04:00 History and Physical pertinent to Admission: Past Medical History Medical History: 1. HTN. 2. hypercholesterolemia. 3. osteoarthritis. 4. low testosterone. 5. GERD. 6. Depression, well controlled. Surgical History: 1. outside of knee surgery today, none Pertinent Family History: significant for heart attack in in father, and stroke in mother. Past Social History: almost 10 years. second marriage. had one son who is . no smoking tobacco, drinks occasional alcohol. lives in [place], [place]. Tobacco Use: Former Smoker Course of Hospitalization: This very nice 66-year-old gentleman with past medical history significant for high blood pressure and high cholesterol amongst other medical issues comes in with bilateral also arthritis of the knees he underwent unipolar knee replacement on the right side done by Dr. Krishnamurthy he did well postop with physical therapy Dr. Krishnamurthy recommended he could could be discharged home today medically he is stable he will be taking aspirin to 25 twice a day for DVT prophylaxis he will also be coming back next Sunday for another and knee operation he will continue his home meds denies any chest pain nausea or vomiting he is urinating well and having bowel movements case was discussed with nursing and Dr. Krishnamurthy and person On the date of discharge, the patient was examined: Gen.: No acute distress, alert, nontoxic Heart: Regular rate and rhythm, no murmurs, clicks, gallops, or rubs Lungs: Clear to auscultation bilaterally, breathing is nonlabored Abdomen/GI: Normal tones on auscultation, soft, nontender, nondistended Musculoskeletal/extremities: No clubbing, cyanosis, or edema Vitals reviewed and are listed below Vital Signs (24 hrs) Temp Pulse Resp BP BP Pulse Ox 07/28/17 07:38 98.6 F 82 18 128/78 92 07/28/17 04:42 97.9 F 82 20 128/88 91 07/28/17 04:01 97.9 F 07/28/17 00:47 97.9 F 82 20 128/88 91 07/27/17 21:00 97.7 F 85 20 127/77 94 07/27/17 19:00 85 20 07/27/17 17:00 97.8 F 79 20 136/90 92 07/27/17 13:00 98.5 F 86 16 133/81 92 Assessment and Plan: 1. As per discharge assessments above 2. Disposition: Home 3. Condition on discharge, stable and improved. 4. Diet: regular diet 5. Activities: resume normal activities 6. Follow-Up: 1. PCP and Dr. Krishnamurthy 2. 7. Medications at the Time of Discharge: Home Medications 3 Medication Instructions Recorded Confirmed Type Calcium Carbonate [Calcium] 1 tab PO QD #90 tab 12/28/14 07/26/17 History Multivitamin [Multivitamins] 1 tab PO DAILY #90 tab 12/28/14 07/26/17 History Mv-Min/Vit C/Glu/Rose HCl/Hc124 1 tab PO QD #30 tab 03/23/15 07/26/17 History [Airborne Tablet Chewable] carvedilol 25 mg tablet 25 mg PO BID #180 tab 01/15/17 07/26/17 Rx olmesartan 40 mg tablet 40 mg PO QDAY #90 tab 01/15/17 07/26/17 Rx testosterone cypionate 200 mg/mL 300 mg IM MONTHLY #4 vial 01/15/17 07/26/17 Rx intramuscular oil cetirizine 10 mg capsule 10 mg PO DAILY cap 04/25/17 07/26/17 History cholecalciferol (vitamin D3) 5,000 5,000 unit PO QD #90 cap 04/25/17 07/26/17 History unit capsule vitamin E mixed 400 unit capsule 400 unit PO QD #30 cap 04/25/17 07/26/17 History rosuvastatin 10 mg tablet 10 mg PO QDAY #90 tab 05/04/17 07/26/17 Rx escitalopram 20 mg tablet 20 mg PO DAILY #90 tab 05/21/17 07/26/17 Rx nifedipine ER 30 mg 30 mg PO BID #10 tab 05/25/17 07/26/17 Rx tablet,extended release 24 hr Albuterol Sulfate [Proair Hfa] 2 puff INH ONCE PRN 07/26/17 07/26/17 History Acetaminophen [Tylenol] 325 - 650 mg PO Q4H PRN tab 07/28/17 Rx Aspirin EC 325 mg PO BID tab 07/28/17 Rx HYDROcodone/APAP 7.5/325 Tab 1 - 2 tab PO Q4H PRN #50 tab 07/28/17 Rx [[place] 7.5/325 Tab] 8. Time, care, counseling and coordination of care for this discharge is greater than 30 minutes. Exam - Vitals Vital Signs: Vital Signs Temperature 98.6 F Temperature Source Temporal Artery Scan Pulse Rate [Pulse Oximeter] 82 Pulse Rate 95 Respiratory Rate 18 Blood Pressure [Left Arm] 128/88 Blood Pressure [Right Arm] 128/78 Blood Pressure 117/95 Pulse Ox 92 Oxygen Flow Rate 2.5 Oxygen Delivery Method Room Air Height 5 ft 9 in Weight 223 lb 6.4 oz Patient Problems - Patient Problem List (1) Hypertension Current Visit: Yes Status: Chronic Code(s): I10 - Essential (primary) hypertension Qualifiers: Hypertension type: essential hypertension Qualified Code(s): I10 - Essential (primary) hypertension Category: Medical (2) Hypercholesterolemia Current Visit: Yes Status: Chronic Code(s): E78.00 - Pure hypercholesterolemia, unspecified Category: Medical (3) Low testosterone Current Visit: Yes Status: Chronic Code(s): E34.9 - Endocrine disorder, unspecified Category: Medical (4) Anxiety and depression Current Visit: Yes Status: Chronic Onset Date: 12/28/14 Code(s): F41.8 - Other specified anxiety disorders Category: Medical (5) GERD (gastroesophageal reflux disease) Current Visit: Yes Status: Chronic Onset Date: 12/28/14 Code(s): K21.9 - Gastro-esophageal reflux disease without esophagitis Category: Medical (6) Arthritis of right knee Current Visit: Yes Status: Acute Code(s): M17.11 - Unilateral primary osteoarthritis, right knee Category: Medical
[2017-07-28 11:45] VITALS: BP 119/77; TEMP 97.8; O2SAT 91
--- NOTE | 2017-07-30 09:50 | PTI REPORT ---
Thank you for the referral of Aditya Fisher. He was seen on 07/27/17 for an inpatient evaluation status post right unilateral knee replacement. SUBJECTIVE: The patient is a 66-year-old male who underwent a right unilateral knee replacement yesterday, 07/26/2017. The patient states that he is doing very well following his knee replacement and feels that his pain has greatly improved. The patient reports a pain level currently of 2-2.5/10 on the verbal analog scale (0=no pain, 10=worst pain) and he is looking forward to getting up and walking and participating in therapy as he is anticipating having his left knee done next 07/31/2017. The patient states that he is from [place] where he lives with his in a split level home. The patient states that he has 5 stairs to the bottom level of his home and 7 stairs to the top level. He has 1 step into his house from the front door and 3 steps into the home from the garage. PAST MEDICAL HISTORY: Past medical history can be found in the patient's medical record. OBJECTIVE FINDINGS: General observations: The patient was alert and oriented to setting upon PT arrival. The patient was sitting up in chair. Transfers: The patient was able to perform a sit to stand transfer with stand by assist x1 for safety. Balance: The patient demonstrated fair standing balance. Ambulation: The patient's walker was adjusted to correct height as it was too high for the patient initially. Once it was adjusted to height, he was able to ambulate 150 feet around the nurse's station with weight-bearing as tolerated on the right. The patient did require verbal cueing for safety awareness when ambulating with the walker as he did try to go too fast and tended to rock the walker. After verbal cueing for proper assistive device placement and use, the patient was able to perform ambulation in a correct manner and more safely. Bed mobility: The patient was able to perform transfers in and out of bed with stand by assist x1. ASSESSMENT: The patient has good rehab potential. The patient is very motivated to return home, especially as he is anticipating having his other knee done next week. Problem List: Pain in the right knee Decreased range of motion Weakness Short-Term Goals: To be met by discharge from inpatient: Patient will be able to ambulate at least 150 feet with standard walker safely and independently. Patient will be able to perform all transfers safely and independently. Patient will be able to ascend and descend one flight of stairs safely and correctly using walker. Long-Term Goals: To be met following discharge from inpatient: Patient will be seen by outpatient physical therapy in [place]. TREATMENT PLAN: Patient will be seen B.I.D during the week and one time per day over the weekend as an inpatient for transfers, ambulation, stair training, and pain relief modalities as needed. INITIAL TREATMENT: Treatment today consisted of the initial evaluation followed by one unit of functional activity. The patient was left in chair with alarm set and call light within reach. [facility]
== END 2017-07-28 13:25 | disposition home or self-care (01) | DRG 470 ==
LOC: OPS 10:13 → MED/SURG 07-26 16:01
PROVIDERS: ADMIT Orthopaedic Surgery; ATTEND Orthopaedic Surgery

== ENCOUNTER 2017-07-31 10:22 | Inpatient (IN) ==
[~2017-07-31 10:22] MED LIST changes: +DEXAMETHASONE PF 10 MG/1 ML VIAL ONE; +LIDOCAINE HCL 1%/EPI 1:100,000 - 20 ML VIAL ONE; +MEPIVACAINE HCL/PF 20 MG/1 ML ONE; +MIDAZOLAM 5 MG/1 ML ONE; +fentaNYL Inj 250 MCG/5 ML VIAL ONE
[2017-07-31] MEDS ORDERED: Sodium Chloride 0.9% vial 10 ML ONE ×3 (10:28→14:33)
[2017-07-31] MEDS ORDERED: PROPOFOL 10 MG/1 ML (200 MG/20 ML) VIAL IV ONE (10:29)
[2017-07-31] MEDS ORDERED: ONDANSETRON 4 MG/2 ML VIAL ONE (10:33)
[2017-07-31 10:48] LABS: BILIRUBIN,URINE NEGATIVE (NEG); CLARITY,URINE CLEAR (CLEAR); COLOR,URINE YELLOW (Y); GLUCOSE, URINE (UA) NEGATIVE (NEG); OCCULT BLOOD,URINE NEGATIVE (NEG); PH,URINE 7.5 (5.0-8.5); PROTEIN,URINE NEGATIVE (NEG); UROBILINOGEN,URINE 0.2 EU/dL (0.2)
[2017-07-31] MEDS ORDERED: NORMAL SALINE 10 ML SYRINGE FLUSH IVP PRN (10:50)
[2017-07-31] MEDS ORDERED: ATROPINE SULFATE 0.4 MG/1 ML VIAL IVP PRN (10:50)
[2017-07-31] MEDS ORDERED: ONDANSETRON 4 MG/2 ML VIAL IVP PRN ×2 (10:50→16:27)
[2017-07-31] MEDS: Lactated Ringers 1,000 ML PRIMARY IV SCH ×3 (10:50→20:24)
[2017-07-31] MEDS ORDERED: LIDOCAINE W/ SODIUM BICARB 0.5 ML SYR SUBD PRN (10:50)
[2017-07-31] MEDS ORDERED: Ondansetron ODT Tab 8 MG TAB PO PRN ×2 (10:50→16:27)
--- NOTE | 2017-07-31 10:52 | CRNA.PROGR ---
Anesthesia Time - - Start date: 07/31/17 End date: 07/31/17 - Procedure/Recovery Time Anesthesia : Time In: 13:39 Anesthesia : Time Out: 15:35 Anesthesia : Total Time: 116 - Total Anesthesia Time Total Anesthesia Time (minutes): 116 - Other Physical Status: P2 (Hep c positive, HTN,) Anesthesia Type: General Anesthesia : ET
[2017-07-31 10:57] LABS: URINE SAMPLE TYPE CLEAN CATCH URINE
[2017-07-31] MEDS ORDERED: Lactated Ringers 1,000 ML PRIMARY IV SCH (11:00)
[2017-07-31 11:30] LABS: Hematocrit [HCT] 41.6 % (42.0-52.0); Hemoglobin [HGB] 14.7 g/dL (14.0-18.0); MEAN CORPUSCULAR HEMOGLOBIN 31.5 PG (27-31); MEAN CORPUSCULAR HGB CONC 35.3 g/dL (33-37); MEAN CORPUSCULAR VOLUME 89.3 FL (80-90); MEAN PLATELET VOLUME 11.6 FL (7.4-12.2); RED BLOOD COUNT 4.66 10^6/uL (4.70-6.10)
[2017-07-31 12:00] LABS: BLOOD UREA NITROGEN 23 mg/dL (7-22); SERUM ALBUMIN 4.3 g/dL (3.5-4.8)
[2017-07-31] MEDS ORDERED: Vancomycin Inj 1gm vial ONE ×2 (12:03→14:33)
[2017-07-31] MEDS ORDERED: Sodium Chloride 0.9% 250 ML IV ONE (13:25)
[2017-07-31] MEDS ORDERED: Sodium Chloride 0.9% 0 ML ONE (13:25)
[2017-07-31] MEDS ORDERED: ROCURONIUM 10 MG/1 ML - 5 ML VIAL IVP ONE (13:30)
[2017-07-31] MEDS ORDERED: LIDOCAINE MPF 2% - 5 ML (20 MG/1 ML) ONE (13:30)
[2017-07-31] MEDS ORDERED: ePHEDrine Inj 50 MG/ML AMP ONE (14:02)
[2017-07-31] MEDS ORDERED: TRANEXAMIC ACID 1,000 MG / 10 ML VIAL ONE (14:41)
[2017-07-31] MEDS ORDERED: HYDROmorphone 2 MG/1 ML ONE (15:34)
[2017-07-31] MEDS: HYDROmorphone 2 MG/1 ML IVP PRN ×3 (15:35→17:05)
--- NOTE | 2017-07-31 15:41 | CRNA.PROGR ---
Anesthesia Recovery Phase I - Post Anesthesia Evaluation Patient's Condition on Arrival in Phase I: Stable Patient's Condition on Arrival in Phase II: Stable Pain Level: 7 (Medicated)
--- NOTE | 2017-07-31 15:41 | CRNA.PROGR ---
Post Anesthesia Phase II - Post Anesthesia Phase II Patient Stable and Discharged To: Med/Surg Care Assumed By Surgeon: Trev Krishnamurthy MD Temperature: 98.5 F Pulse Rate: 76 Respiratory Rate: 17 Blood Pressure: 122/81 Pulse Ox: 95 Total Matias Score at Discharge: 9 Post Anesthesia Discharge Criteria Met: Yes
[2017-07-31] MEDS ORDERED: fentaNYL Inj 100 MCG/2 ML VIAL ONE (15:46)
[2017-07-31] MEDS: fentaNYL Inj 100 MCG/2 ML VIAL IVP PRN ×2 (15:50→16:00)
[2017-07-31] MEDS ORDERED: HYDROcodone-APAP 7.5 MG-325 MG TABLET PO PRN (16:27)
[2017-07-31] MEDS ORDERED: Prochlorperazine Tab 10 MG TAB PO PRN (16:27)
[2017-07-31] MEDS ORDERED: BISACODYL 5 MG TABLET PO PRN (16:27)
[2017-07-31] MEDS ORDERED: IBUPROFEN 400 MG TABLET PO PRN (16:27)
[2017-07-31] MEDS ORDERED: CHOLECALCIFEROL 5000 UNIT PO SCH (16:27)
[2017-07-31] MEDS ORDERED: ALBUTEROL SULFATE 8.5 GM HFA INHALER INH PRN (16:27)
[2017-07-31] MEDS ORDERED: BISACODYL 10 MG SUPPOSITORY RECTAL PRN (16:27)
[2017-07-31] MEDS ORDERED: ACETAMINOPHEN 325 MG TABLET PO PRN (16:27)
--- NOTE | 2017-07-31 17:14 | ORTHO.OP ---
- - -: See Dictated Operative Report (Gabrielle Gomez assisted)
--- NOTE | 2017-07-31 17:17 | ORTHO.PROG ---
Last Taken Vital Signs: Vital Signs - Last Taken Temperature 98.3 F 07/31/17 17:00 Pulse Rate 96 07/31/17 17:00 Respiratory Rate 16 07/31/17 17:00 Blood Pressure 149/104 07/31/17 17:00 Pulse Ox 94 07/31/17 17:00 Subjective: Patient notes his pain control is not as good as it was initially after his first surgery. Objective: Examination shows that the patient has good motion of the foot and ankle. Dressing is clean and dry. Motor and sensory exam nonfocal good pulses brisk refill Deep culture Gram stain no organisms Superficial culture Gram stain no organisms Prior to surgery patient's sedimentation rate was 33, CRP was 6.5 Assessment: Right unicompartmental knee replacement with active drainage 5 days after surgery serosanguineous fluid Plan: Patient underwent a washout and exchange of the polyethylene. Cultures were obtained both superficially and deep. We will await the culture results we'll keep him on vancomycin until that time. I will probably do just toe-touch weightbearing and not be very aggressive with therapy at this point in time.
[2017-07-31] MEDS: HYDROcodone-APAP 7.5 MG-325 MG TABLET PO PRN ×2 (18:44→22:43)
[2017-07-31] MEDS: ASPIRIN 325 MG EC TABLET PO SCH (20:08)
[2017-07-31] MEDS: NIFEdipine 30 MG ER 24H TABLET PO SCH (20:08)
[2017-07-31] MEDS: DOCUSATE 100 MG CAPSULE PO SCH (20:08)
[2017-07-31] MEDS: Rosuvastatin Tab 20 MG TAB PO SCH (20:08)
[2017-07-31] MEDS: CARVEDILOL 12.5 MG TABLET PO SCH (20:39)
[2017-08-01] MEDS: HYDROcodone-APAP 7.5 MG-325 MG TABLET PO PRN ×5 (02:14→22:13)
[2017-08-01] MEDS: HYDROmorphone 2 MG/1 ML IVP PRN ×4 (04:19→17:43)
[2017-08-01 05:12] LABS: Hematocrit [HCT] 38.3 % (42.0-52.0); Hemoglobin [HGB] 13.2 g/dL (14.0-18.0); MEAN CORPUSCULAR HEMOGLOBIN 31.5 PG (27-31); MEAN CORPUSCULAR HGB CONC 34.5 g/dL (33-37); MEAN CORPUSCULAR VOLUME 91.4 FL (80-90); MEAN PLATELET VOLUME 11.2 FL (7.4-12.2); RED BLOOD COUNT 4.19 10^6/uL (4.70-6.10)
[2017-08-01 05:21] LABS: BLOOD UREA NITROGEN 18 mg/dL (7-22)
[2017-08-01] MEDS: CALCIUM CARBONATE 500 MG (TUMS) CHEWABLE TABLET PO PRN ×2 (07:15→18:30)
[2017-08-01] MEDS: NORMAL SALINE 10 ML SYRINGE FLUSH IVP PRN ×3 (07:21→14:55)
[2017-08-01] MEDS ORDERED: ASPIRIN 325 MG EC TABLET PO SCH (09:00)
[2017-08-01] MEDS ORDERED: Vancomycin-PHA to Dose IV PRN (09:10)
--- NOTE | 2017-08-01 09:10 | CONSULT ---
Consult Note - Consult Consult Date: 08/01/17 Reason for Consult: PostOp Consulation : Ortho Requesting Physician: Dr. Krishnamurthy Primary Care Provider: Rosalind Schuster MD - History of Present Illness History of Present Illness: This is a 66 years old male with past medical history significant for history of hypertension, hypercholesterolemia, anxiety who had right knee surgery last week done by Dr. Krishnamurthy where he had right unicompartmental knee replacement he was discharged on the 24 home but apparently after discharge he started to notice more drainage from the knee so yesterday he was admitted by Dr. Krishnamurthy again and had washout of the knee in addition cultures were taken and he was given vancomycin after that. He said that he had a rough night last night his pain was severe he needed IV pain medication. His pain is better now compared to what it was. Denying other symptoms there's no shortness of breath , no nausea. Past Medical History Medical History: 1. HTN. 2. hypercholesterolemia. 3. osteoarthritis. 4. low testosterone. 5. GERD. 6. Depression, well controlled. Surgical History: 1. outside of knee surgery today, none Pertinent Family History: significant for heart attack in in father, and stroke in mother. Past Social History: almost 10 years. second marriage. had one son who is . no smoking tobacco, drinks occasional alcohol. lives in [place], [place]. Tobacco Use: Former Smoker In the Past 12 Months, Have Used or Abuse Any of the Following Substance: None Alcohol Use: Occasionally Review of Systems - Review of Systems All Systems: Reviewed & No Additional Complaints Except as Stated Medication / Allergies Home Medications: Home Medications 3 Medication Instructions Recorded Confirmed Type Calcium Carbonate [Calcium] 1 tab PO QD #90 tab 12/28/14 07/31/17 History Multivitamin [Multivitamins] 1 tab PO DAILY #90 tab 12/28/14 07/31/17 History Mv-Min/Vit C/Glu/Rose HCl/Hc124 1 tab PO QD #30 tab 03/23/15 07/31/17 History [Airborne Tablet Chewable] carvedilol 25 mg tablet 25 mg PO BID #180 tab 01/15/17 07/31/17 Rx olmesartan 40 mg tablet 40 mg PO QDAY #90 tab 01/15/17 07/31/17 Rx testosterone cypionate 200 mg/mL 300 mg IM MONTHLY #4 vial 01/15/17 07/26/17 Rx intramuscular oil cetirizine 10 mg capsule 10 mg PO DAILY cap 04/25/17 07/31/17 History cholecalciferol (vitamin D3) 5,000 5,000 unit PO QD #90 cap 04/25/17 07/31/17 History unit capsule vitamin E mixed 400 unit capsule 400 unit PO QD #30 cap 04/25/17 07/31/17 History rosuvastatin 10 mg tablet 10 mg PO QDAY #90 tab 05/04/17 07/31/17 Rx escitalopram 20 mg tablet 20 mg PO DAILY #90 tab 05/21/17 07/31/17 Rx nifedipine ER 30 mg 30 mg PO BID #10 tab 05/25/17 07/31/17 Rx tablet,extended release 24 hr Albuterol Sulfate [Proair Hfa] 2 puff INH ONCE PRN 07/26/17 07/31/17 History Acetaminophen [Tylenol] 325 - 650 mg PO Q4H PRN tab 07/28/17 07/31/17 Rx Aspirin EC 325 mg PO BID tab 07/28/17 07/31/17 Rx HYDROcodone/APAP 7.5/325 Tab 1 - 2 tab PO Q4H PRN #50 tab 07/28/17 07/31/17 Rx [[place] 7.5/325 Tab] Allergies/Adverse Reactions: Allergies 3 Allergy/AdvReac Type Severity Reaction Status Date / Time No Known Allergies Allergy Verified 08/01/17 10:18 Exam - Vitals Vital Signs: Vital Signs Temperature 97.7 F Temperature Source Temporal Artery Scan Pulse Rate [Pulse Oximeter] 80 Pulse Rate 94 Respiratory Rate 20 Blood Pressure [Left Arm] 149/98 Blood Pressure 144/99 Pulse Ox 92 Oxygen Flow Rate 3 Oxygen Delivery Method Nasal Cannula Height 5 ft 9 in Weight 222 lb - General General Appearance: No Acute Distress, Cooperative - Head Head Exam: Normal Inspection - Eye Eye Exam: POSITIVE: Normal Appearance - ENT ENT Exam: POSITIVE: Normal Exam - Neck Neck Exam: Normal Inspection - Respiratory Respiratory Exam: POSITIVE: Clear to Auscultation - Bilaterally - Cardiovascular Cardiovascular Exam: POSITIVE: RRR - GI/Abdominal GI/Abdominal Exam: POSITIVE: Normal Bowel Sounds, Non Tender, Non Distended, Soft, No Organomegaly - Rectal Rectal Exam: POSITIVE: Deferred - External Exam: POSITIVE: Deferred - Extremities Additional Extremities Exam Details: No edema, dressing applied to the right knee. - Back Back Exam: POSITIVE: Normal Inspection - Neurological Neurological Exam: POSITIVE: Alert, Oriented x 3, CN II-XII Intact, Moves All Extremities Equally - Psychiatric Psychiatric Exam: POSITIVE: Normal Affect - Integumentary Integumentary Exam: POSITIVE: Normal Color Results - Labs CBC and BMP: 08/01/17 04:09 08/01/17 04:09 Assessment and Plan - Patient Problems (1) Wound drainage Current Visit: Yes Status: Acute Comment: Culture were was taken yesterday and he was put on vancomycin. We'll continue with vancomycin until we have culture result. Code(s): T14.8XXA - Other injury of unspecified body region, initial encounter (2) Hypertension Current Visit: No Status: Chronic Comment: Same medications, he is on losartan, and nifedipine and Coreg Code(s): I10 - Essential (primary) hypertension Qualifiers: Hypertension type: essential hypertension Qualified Code(s): I10 - Essential (primary) hypertension (3) Hypercholesterolemia Current Visit: No Status: Chronic Comment: Continue Crestor Code(s): E78.00 - Pure hypercholesterolemia, unspecified (4) Depression (emotion) Current Visit: No Status: Chronic Comment: Continue Lexapro Code(s): F32.9 - Major depressive disorder, single episode, unspecified Qualifiers: Depression Type: reactive depression Qualified Code(s): F32.9 - Major depressive disorder, single episode, unspecified (5) DVT prophylaxis Current Visit: Yes Status: Acute Comment: He is on aspirin
[2017-08-01] MEDS: CARVEDILOL 12.5 MG TABLET PO SCH ×2 (09:43→20:30)
[2017-08-01] MEDS: NIFEdipine 30 MG ER 24H TABLET PO SCH ×2 (09:44→20:31)
[2017-08-01] MEDS: Beta Carot W/Vit E,C,Min Tab 1 TAB TAB PO SCH (09:44)
[2017-08-01] MEDS: Multivitamin Tab 1 TAB PO SCH (09:44)
[2017-08-01] MEDS: DOCUSATE 100 MG CAPSULE PO SCH ×2 (09:44→20:31)
[2017-08-01] MEDS: ESCITALOPRAM 10 MG TABLET PO SCH (09:45)
[2017-08-01] MEDS: ASPIRIN 325 MG EC TABLET PO SCH ×2 (09:45→20:31)
[2017-08-01] MEDS: Olmesartan Tab 40 MG TAB PO SCH (09:46)
[2017-08-01] MEDS: Calcium/Vit D 600mg/400u Tab 1 TAB TABLET PO SCH (09:46)
[2017-08-01] MEDS: LORATADINE 10 MG TABLET PO SCH (09:47)
[2017-08-01] MEDS: MAG HYDROX/AL HYDROX/SIMETH 30 ML SUSP PO PRN ×2 (09:50→22:15)
[2017-08-01] MEDS: Vitamin E Cap 400 IU CAP PO SCH (09:54)
--- NOTE | 2017-08-01 10:41 | CRNA.PROGR ---
Anesthesia Note - Progress Notes Anesthesia Progress Note: Sitting up in bed watching tv. Discussed anesthetic course and he has no questions or concerns regarding his anesthesia care. Laboratory Results 07/31/17 07/31/17 07/31/17 Range/Units 10:43 11:33 11:33 WBC 7.75 (4.8-10.8) 10^3/uL RBC 4.66 L (4.70-6.10) 10^6/uL Hgb 14.7 (14.0-18.0) g/dL Hct 41.6 L (42.0-52.0) % MCV 89.3 (80-90) FL MCH 31.5 H (27-31) PG MCHC 35.3 (33-37) g/dL RDW Std Deviation 44.6 (39-50) fL RDW Coeff of Dinesh 13.9 (11.5-14.5) % Plt Count 156 (140-350) 10*3/uL MPV 11.6 (7.4-12.2) FL ESR (0-15) MM/HR Sodium 138 (135-145) meq/L Potassium 4.6 (3.8-5.2) meq/L Chloride 97 L (98-112) meq/L Carbon Dioxide 26 (23-33) meq/L Anion Gap 15 (5-20) BUN 23 H (7-22) mg/dL Creatinine 1.1 (0.70-1.50) mg/dL Estimated GFR > 60 (>60 ml/min/1.73m(2)) BUN/Creatinine Ratio 20.90 H (6-20) Glucose 113 H (78-110) mg/dL Calculated Osmolality 290.0 (267-292) mOsm/kg Calcium 9.6 (8.7-10.7) mg/dL Total Bilirubin 1.7 H (0.3-1.2) mg/dL AST 35 (21-57) IU/L ALT 43 (21-72) IU/L Alkaline Phosphatase 51 (38-126) IU/L C-Reactive Protein (0.0-0.9) mg/dL Total Protein 7.2 (6.1-8.0) g/dL Albumin 4.3 (3.5-4.8) g/dL Globulin 2.9 (2.50-4.10) g/dL Albumin/Globulin Ratio 1.40 (1.3-2.0) mg/g Ur Collection Type Clean catch urine Urine Color Yellow (Y) Urine Clarity Clear (CLEAR) Urine pH 7.5 (5.0-8.5) Ur Specific [place] 1.015 (1.005-1.030) Urine Protein Negative (NEG) mg/dl Urine Glucose (UA) Negative (NEG) mg/dL Urine Ketones Negative (NEG) Urine Occult Blood Negative (NEG) Urine Nitrate Negative (NEG) Urine Bilirubin Negative (NEG) Urine Urobilinogen 0.2 (0.2) EU/dL Ur Leukocyte Esterase Negative (NEG) 07/31/17 07/31/17 08/01/17 Range/Units 11:33 11:33 04:09 WBC 5.65 (4.8-10.8) 10^3/uL RBC 4.19 L (4.70-6.10) 10^6/uL Hgb 13.2 L (14.0-18.0) g/dL Hct 38.3 L (42.0-52.0) % MCV 91.4 H (80-90) FL MCH 31.5 H (27-31) PG MCHC 34.5 (33-37) g/dL RDW Std Deviation 45.6 (39-50) fL RDW Coeff of Dinesh 13.9 (11.5-14.5) % Plt Count 139 L (140-350) 10*3/uL MPV 11.2 (7.4-12.2) FL ESR 33 H (0-15) MM/HR Sodium (135-145) meq/L Potassium (3.8-5.2) meq/L Chloride (98-112) meq/L Carbon Dioxide (23-33) meq/L Anion Gap (5-20) BUN (7-22) mg/dL Creatinine (0.70-1.50) mg/dL Estimated GFR (>60 ml/min/1.73m(2)) BUN/Creatinine Ratio (6-20) Glucose (78-110) mg/dL Calculated Osmolality (267-292) mOsm/kg Calcium (8.7-10.7) mg/dL Total Bilirubin (0.3-1.2) mg/dL AST (21-57) IU/L ALT (21-72) IU/L Alkaline Phosphatase (38-126) IU/L C-Reactive Protein 6.5 H (0.0-0.9) mg/dL Total Protein (6.1-8.0) g/dL Albumin (3.5-4.8) g/dL Globulin (2.50-4.10) g/dL Albumin/Globulin Ratio (1.3-2.0) mg/g Ur Collection Type Urine Color (Y) Urine Clarity (CLEAR) Urine pH (5.0-8.5) Ur Specific [place] (1.005-1.030) Urine Protein (NEG) mg/dl Urine Glucose (UA) (NEG) mg/dL Urine Ketones (NEG) Urine Occult Blood (NEG) Urine Nitrate (NEG) Urine Bilirubin (NEG) Urine Urobilinogen (0.2) EU/dL Ur Leukocyte Esterase (NEG) 08/01/17 Range/Units 04:09 WBC (4.8-10.8) 10^3/uL RBC (4.70-6.10) 10^6/uL Hgb (14.0-18.0) g/dL Hct (42.0-52.0) % MCV (80-90) FL MCH (27-31) PG MCHC (33-37) g/dL RDW Std Deviation (39-50) fL RDW Coeff of Dinesh (11.5-14.5) % Plt Count (140-350) 10*3/uL MPV (7.4-12.2) FL ESR (0-15) MM/HR Sodium 137 (135-145) meq/L Potassium 4.4 (3.8-5.2) meq/L Chloride 96 L (98-112) meq/L Carbon Dioxide 31 (23-33) meq/L Anion Gap 10 (5-20) BUN 18 (7-22) mg/dL Creatinine 0.9 (0.70-1.50) mg/dL Estimated GFR > 60 (>60 ml/min/1.73m(2)) BUN/Creatinine Ratio 20.00 (6-20) Glucose 109 (78-110) mg/dL Calculated Osmolality 286.0 (267-292) mOsm/kg Calcium 8.9 (8.7-10.7) mg/dL Total Bilirubin (0.3-1.2) mg/dL AST (21-57) IU/L ALT (21-72) IU/L Alkaline Phosphatase (38-126) IU/L C-Reactive Protein (0.0-0.9) mg/dL Total Protein (6.1-8.0) g/dL Albumin (3.5-4.8) g/dL Globulin (2.50-4.10) g/dL Albumin/Globulin Ratio (1.3-2.0) mg/g Ur Collection Type Urine Color (Y) Urine Clarity (CLEAR) Urine pH (5.0-8.5) Ur Specific [place] (1.005-1.030) Urine Protein (NEG) mg/dl Urine Glucose (UA) (NEG) mg/dL Urine Ketones (NEG) Urine Occult Blood (NEG) Urine Nitrate (NEG) Urine Bilirubin (NEG) Urine Urobilinogen (0.2) EU/dL Ur Leukocyte Esterase (NEG) Vital Signs (24 hrs) Temp Pulse Pulse Resp BP BP Pulse Ox 08/01/17 09:00 97.9 F 74 18 142/96 94 08/01/17 04:56 92 08/01/17 04:30 97.7 F 80 20 149/98 96 08/01/17 01:00 97.2 F 76 21 134/93 96 07/31/17 21:00 98.2 F 93 20 133/90 95 07/31/17 17:30 97.8 F 100 18 148/98 94 07/31/17 17:00 98.3 F 96 16 149/104 94 07/31/17 16:28 98.3 F 96 16 149/104 94 07/31/17 16:16 98.2 F 94 18 144/99 94 07/31/17 16:12 94 17 144/99 94 07/31/17 16:08 98.4 F 94 16 145/97 94 07/31/17 16:02 98.2 F 94 17 149/97 94 07/31/17 15:58 98.2 F 93 16 129/92 96 07/31/17 15:52 98.0 F 92 14 142/87 95 07/31/17 15:46 98.0 F 95 16 141/95 95 07/31/17 15:42 98.0 F 95 13 142/92 95 07/31/17 15:41 98.5 F 76 17 122/81 95 07/31/17 15:36 98.2 F 94 11 L 144/98 94 07/31/17 15:32 98.2 F 93 16 146/103 92
[2017-08-01] MEDS: Lactated Ringers 1,000 ML PRIMARY IV SCH ×2 (11:45→14:44)
--- NOTE | 2017-08-01 12:30 | PTI REPORT ---
Thank you for the referral of Aditya Fisher. He was seen on 08/01/17 for an inpatient evaluation secondary to washout in exchange of polyethylene right knee. SUBJECTIVE: The patient is a 66-year-old male. The therapist consulted with Dr. Krishnamurthy this morning. The patient did have a washout in exchange of polyethylene in the right knee and the drain is now in place. Precautions include touch down weight-bearing on that right side as well as limitation of range of motion from 0 to 60-70 degrees. The patient currently lives in a house with his . There is one step to enter the house. It is a split level house with 6 steps to the basement and 7 steps to the upstairs with a single rail. The patient was independent with the stairs upon his discharge from initial surgery last week. PAST MEDICAL HISTORY: Past medical history can be found in the patient's medical record. OBJECTIVE FINDINGS: Pain: At this time the patient reports a pain level of 1/10 on the verbal analog scale (0=no pain, 10=worst pain) at rest. With attempts to move and sitting edge of bed, his pain increased to a level of 9/10. Bed mobility: The patient did require mod assist x1 to transition from supine to sitting position. He required mod assist x1 to return to supine position. Transfers: The patient required supervision to transition from sitting to standing position. The patient was able to stand with support of a walker with good balance maintaining toe touch weight-bearing on the right side. Ambulation: We did not attempt to ambulate this morning due to severe pain in the right knee with the leg in a dependent position. He was able to do 8 calf raises on the left side maintaining touch down weight-bearing on the right. ASSESSMENT: Problem List: Pain in the right knee Weight-bearing restrictions Decreased functional mobility Short-Term Goals: To be met by discharge from inpatient: Patient will be able to transfer ind in/out of bed, on/off chair with arms Patient will be able to amb 100feet with walker, TDWB right Patient will be able to demonstrate pain <3/10 for all activity Long-Term Goals: To be met following discharge from inpatient: Patient will be able to amb 200 ft ind with walker, TDWB right Patient will be able to perform HEP ind TREATMENT PLAN: Patient will be seen B.I.D during the week and one time per day over the weekend as an inpatient for isometric exercises, gentle active range of motion with limitation of 0 to 60 degrees, and gait training with a standard walker and toe touch weight-bearing on the right. Plan of care was reviewed with the patient and agreed upon. INITIAL TREATMENT: Treatment today consisted of the initial evaluation. Following evaluation, the patient was positioned in supine with knee in extension with ice pack on the knee. Note done by: Rebecca Moy, PT MUNA
--- NOTE | 2017-08-01 17:01 | PT.PROG ---
Progress Note Progress Note: S. Patient states that he is feeling much better this afternoon compared to this morning. O. Patient ambulated 75 feet in the angulo then returned to his room where he was left in bed with alarm and call light. A. Patient tolerated ambulation well, he is struggling with pain. He would continue to benefit from skilled therapy to increase strength, mobility and endurance. P. continue POC
--- NOTE | 2017-08-01 18:02 | ORTHO.PROG ---
Last Taken Vital Signs: Vital Signs - Last Taken Temperature 97.9 F 08/01/17 16:48 Pulse Rate 75 08/01/17 16:48 Respiratory Rate 16 08/01/17 16:48 Blood Pressure 105/77 08/01/17 16:48 Pulse Ox 91 08/01/17 16:48 Subjective: Patient notes he is having more pain than he did after his index procedure. Objective: Motor and sensory exam is good he walked with therapy. Flex to about 60 full extension motor and sensory exam is nonfocal he has good pulses and brisk refill. Popliteal adductor hiatus or thigh pain. Laboratory Results 08/01/17 08/01/17 Range/Units 04:09 04:09 WBC 5.65 (4.8-10.8) 10^3/uL RBC 4.19 L (4.70-6.10) 10^6/uL Hgb 13.2 L (14.0-18.0) g/dL Hct 38.3 L (42.0-52.0) % MCV 91.4 H (80-90) FL MCH 31.5 H (27-31) PG MCHC 34.5 (33-37) g/dL RDW Std Deviation 45.6 (39-50) fL RDW Coeff of Dinesh 13.9 (11.5-14.5) % Plt Count 139 L (140-350) 10*3/uL MPV 11.2 (7.4-12.2) FL Sodium 137 (135-145) meq/L Potassium 4.4 (3.8-5.2) meq/L Chloride 96 L (98-112) meq/L Carbon Dioxide 31 (23-33) meq/L Anion Gap 10 (5-20) BUN 18 (7-22) mg/dL Creatinine 0.9 (0.70-1.50) mg/dL Estimated GFR > 60 (>60 ml/min/1.73m(2)) BUN/Creatinine Ratio 20.00 (6-20) Glucose 109 (78-110) mg/dL Calculated Osmolality 286.0 (267-292) mOsm/kg Calcium 8.9 (8.7-10.7) mg/dL Vital Signs (24 hrs) Temp Pulse Resp BP BP Pulse Ox 08/01/17 16:48 97.9 F 75 16 105/77 91 08/01/17 11:20 97.5 F 70 16 125/87 93 08/01/17 09:00 97.9 F 74 18 142/96 94 08/01/17 04:56 92 08/01/17 04:30 97.7 F 80 20 149/98 96 08/01/17 01:00 97.2 F 76 21 134/93 96 07/31/17 21:00 98.2 F 93 20 133/90 95 Microbiology 07/31/17 14:21 Knee - Right Gram Stain - Final 07/31/17 14:21 Knee - Right Anaerobic Culture - Pending 07/31/17 14:21 Knee - Right Aerobic Culture - Preliminary 07/31/17 14:21 Knee - Right Gram Stain - Final 07/31/17 14:21 Knee - Right Anaerobic Culture - Pending 07/31/17 14:21 Knee - Right Aerobic Culture - Preliminary Assessment: Patient with right unicompartmental knee replacement with active bleeding rule out infection Plan: Patient will continue on IV vancomycin adjusted per pharmacy Cultures are pending this morning his cultures had no growth and gram stains yesterday were both negative we took cultures of the superficial portion of the incision and also the deep. Patient will continue with physical therapy.
[2017-08-01] MEDS: Rosuvastatin Tab 20 MG TAB PO SCH (20:30)
[2017-08-02] MEDS: CALCIUM CARBONATE 500 MG (TUMS) CHEWABLE TABLET PO PRN ×3 (02:00→20:33)
[2017-08-02] MEDS: diphenhydrAMINE 25 MG CAPSULE PO PRN (02:30)
[2017-08-02 05:22] LABS: Hematocrit [HCT] 36.2 % (42.0-52.0); Hemoglobin [HGB] 12.3 g/dL (14.0-18.0); MEAN CORPUSCULAR HEMOGLOBIN 30.9 PG (27-31); MEAN PLATELET VOLUME 10.8 FL (7.4-12.2); RED BLOOD COUNT 3.98 10^6/uL (4.70-6.10)
[2017-08-02 05:27] LABS: BLOOD UREA NITROGEN 26 mg/dL (7-22); BUN/CREATININE RATIO 28.88 (6-20)
--- NOTE | 2017-08-02 07:45 | ORTHO.PROG ---
Last Taken Vital Signs: Vital Signs - Last Taken Temperature 98.4 F 08/02/17 07:25 Pulse Rate 86 08/02/17 07:25 Respiratory Rate 18 08/02/17 07:25 Blood Pressure 122/75 08/02/17 07:25 Pulse Ox 92 08/02/17 07:25 Subjective: Patient notes he feels good this morning, pain is recently well controlled on oral medication Objective: The drain was removed which had not abated toe through line to the reservoir. After removal those some drainage at the skin from the drain hole. There is a very mild amount of swelling around the incision is no active bleeding otherwise. This drain was superficial Laboratory Results 08/02/17 08/02/17 Range/Units 04:57 04:57 WBC 7.68 (4.8-10.8) 10^3/uL RBC 3.98 L (4.70-6.10) 10^6/uL Hgb 12.3 L (14.0-18.0) g/dL Hct 36.2 L (42.0-52.0) % MCV 91.0 H (80-90) FL MCH 30.9 (27-31) PG MCHC 34.0 (33-37) g/dL RDW Std Deviation 44.2 (39-50) fL RDW Coeff of Dinesh 13.6 (11.5-14.5) % Plt Count 156 (140-350) 10*3/uL MPV 10.8 (7.4-12.2) FL Sodium 138 (135-145) meq/L Potassium 4.5 (3.8-5.2) meq/L Chloride 98 (98-112) meq/L Carbon Dioxide 30 (23-33) meq/L Anion Gap 10 (5-20) BUN 26 H (7-22) mg/dL Creatinine 0.9 (0.70-1.50) mg/dL Estimated GFR > 60 (>60 ml/min/1.73m(2)) BUN/Creatinine Ratio 28.88 H (6-20) Glucose 140 H (78-110) mg/dL Calculated Osmolality 292.0 (267-292) mOsm/kg Calcium 9.0 (8.7-10.7) mg/dL Vital Signs (24 hrs) Temp Pulse Resp BP BP Pulse Ox 08/02/17 07:25 98.4 F 86 18 122/75 92 08/02/17 05:00 97.6 F 81 16 139/79 91 08/02/17 04:00 91 08/02/17 00:35 97.9 F 88 133/80 92 08/01/17 20:39 97.7 F 79 16 135/84 92 08/01/17 18:49 75 08/01/17 16:48 97.9 F 75 16 105/77 91 08/01/17 11:20 97.5 F 70 16 125/87 93 08/01/17 09:00 97.9 F 74 18 142/96 94 Motor and sensory exam is nonfocal Assessment: Right medial unicompartmental knee replacement overall doing well with active bleeding requiring exploration and treatment Plan: Patient overall is doing well, we will continue with current protocol and have the culture results hopefully back by tomorrow and if these are okay then I think we can discharge the patient. Activity modifications and symptomatic care in the meantime. We will progress with therapy today I think walking is fine he should work getting full extension and I think bending to may be 70-80 at maximum initially.
[2017-08-02] MEDS: Multivitamin Tab 1 TAB PO SCH (08:36)
[2017-08-02] MEDS: Vitamin E Cap 400 IU CAP PO SCH (08:37)
[2017-08-02] MEDS: Calcium/Vit D 600mg/400u Tab 1 TAB TABLET PO SCH (08:37)
[2017-08-02] MEDS: ASPIRIN 325 MG EC TABLET PO SCH ×2 (08:37→20:33)
[2017-08-02] MEDS: Beta Carot W/Vit E,C,Min Tab 1 TAB TAB PO SCH (08:37)
[2017-08-02] MEDS: ESCITALOPRAM 10 MG TABLET PO SCH (08:37)
[2017-08-02] MEDS: LORATADINE 10 MG TABLET PO SCH (08:37)
[2017-08-02] MEDS: HYDROcodone-APAP 7.5 MG-325 MG TABLET PO PRN ×3 (08:37→16:52)
[2017-08-02] MEDS: DOCUSATE 100 MG CAPSULE PO SCH ×2 (08:37→20:33)
[2017-08-02] MEDS: Olmesartan Tab 40 MG TAB PO SCH (08:37)
[2017-08-02] MEDS: CARVEDILOL 12.5 MG TABLET PO SCH ×2 (08:37→20:33)
[2017-08-02] MEDS: NIFEdipine 30 MG ER 24H TABLET PO SCH ×2 (08:37→20:33)
--- NOTE | 2017-08-02 09:23 | PDOC(PROG) ---
Date and Time of Service: 08/03/1999 8T 9:21 AM Interval History: Subjective Patient just came back from physical therapy so he is complaining from pain in his right knee, but it seems that overall he is doing better.the last time he had the an IV Dilaudid was yesterday afternoon . Complained from heartburn, usually on Nexium but he is not getting here. Objective : Data - Labs CBC and BMP: 08/02/17 04:57 08/02/17 04:57 Objective : Exam - General General Appearance: No Acute Distress, Cooperative - Head Head Exam: Normal Inspection - Eye Eye Exam: Normal Appearance - ENT ENT Exam: Normal Exam - Neck Neck Exam: Normal Inspection - Respiratory Respiratory Exam: Clear to Auscultation - Bilaterally - Cardiovascular Cardiovascular Exam: RRR - GI/Abdominal GI/Abdominal Exam: Normal Bowel Sounds, Non Tender, Non Distended, Soft, No Organomegaly - Rectal Rectal Exam: Deferred - External Exam: Deferred - Extremities Additional Extremities Exam Details: Dressing applied to the right knee. Slight edema in the right leg. - Back Back Exam: Normal Inspection - Neurological Neurological Exam: Alert, Oriented x 3, CN II-XII Intact, Speech Intact / Clear - Psychiatric Psychiatric Exam: Normal Affect Assessment and Plan - Patient Problems (1) Wound drainage Current Visit: Yes Status: Acute Comment: Continue current antibiotics. The growth from the cultures is still negative. Probably home tomorrow if still negative. Code(s): T14.8XXA - Other injury of unspecified body region, initial encounter (2) Hypertension Current Visit: No Status: Chronic Comment: Same medications Code(s): I10 - Essential (primary) hypertension Qualifiers: Hypertension type: essential hypertension Qualified Code(s): I10 - Essential (primary) hypertension (3) Hypercholesterolemia Current Visit: No Status: Chronic Comment: Same med Code(s): E78.00 - Pure hypercholesterolemia, unspecified (4) Depression (emotion) Current Visit: No Status: Chronic Comment: Continue Lexapro Code(s): F32.9 - Major depressive disorder, single episode, unspecified Qualifiers: Depression Type: reactive depression Qualified Code(s): F32.9 - Major depressive disorder, single episode, unspecified (5) DVT prophylaxis Current Visit: Yes Status: Acute Comment: Continue aspirin for prophylaxis. (6) GERD (gastroesophageal reflux disease) Current Visit: No Status: Chronic Onset Date: 12/28/14 Comment: We'll put him on Nexium tonight. Code(s): K21.9 - Gastro-esophageal reflux disease without esophagitis
--- NOTE | 2017-08-02 10:14 | PT.PROG ---
Progress Note Progress Note: S: Pt reports right knee pain as 9/10 and states he did not sleep well last night. However, pt is motivated to participate in therapy. O: Upon arrival for therapy, pt seated at edge of bed with nursing staff in room. RN cleared pt for therapy and reports that pt just received pain medication. RN also states that the pt received Dilaudid yesterday evening and was very confused throughout the night, but appears to be doing better now. Pt performed sit to stand transfer with CGA with standard walker. Pt ambulated with standard walker and CGA in the hallway 80 feet with frequent standing rest breaks. He also required frequent cues to maintain TTWB precautions. Pt performed 2 sit to stand transfers for LE strengthening and functional mobility training. Pt educated on performing ankle pumps several times throughout the day and positioning of the right knee. At the conclusion of therapy, pt returned to sitting in bedside chair with LEs elevated. Call button placed within reach and alarms activated. A: Pt requires frequent cues to maintain WB precautions during transfers and ambulation. Continued skilled physical therapy is indicted to improve functional independence and decrease fall risk. P: Continue with POC within surgical precautions including functional mobility training and LE strengthening in order to progress towards returning to PLOF. Submitted by: KYARA Tang Supervised by: Crystal Byrd DPT
--- NOTE | 2017-08-02 15:03 | OTI REPORT ---
Thank you for the referral of Aditya Fisher. He was seen on 08/02/17 for an occupational therapy inpatient evaluation. SUBJECTIVE: The patient is a 66-year-old male who had a knee surgery last week. He recently had an infection and had to be opened back up. He is now on toe touch weight-bearing precautions. The patient does report that he is hoping to go home this Sunday. The patient lives in [place] with his . There are two steps to the entrance of the home and once inside, it is a split level home with 5 steps to go downstairs and 7 steps to go upstairs with handrails. The patient reports he was able to complete the stairs following his first surgery without difficulty. The patient does report that he is able to complete dressing tasks at home independently and he is independent with all iADLs. The patient is currently on penitentiary disability from the [employer]. He states he is hoping to return to work when able. The patient does have assistance at home from his . PAST MEDICAL HISTORY: Past medical history can be found in the patient's medical record. OBJECTIVE FINDINGS: Pain: The patient reports a pain level of 9/10 on the verbal analog scale (0=no pain, 10=worst pain) after getting up and moving with physical therapy. Ambulation: The patient did demonstrate the ability to walk a short distance with toe touch weight-bearing precautions; however, he did report that his arms did fatigue. Range of motion: The patient demonstrated upper extremity range of motion for the shoulder, elbow, hand, and wrist within functional limits. Strength: The patient did demonstrate upper extremity strength of 4+/5 for the shoulder, elbow, hand, and wrist. Endurance: The patient does lack some activity tolerance related to functional mobility tasks. Activities of daily living: The patient demonstrated the ability to get dressed with set up assistance. ASSESSMENT: Problem List: Decreased upper extremity strength Decreased upper extremity activity tolerance Short-Term Goals: To be met by discharge from inpatient: Patient will demonstrate the ability to complete functional transfers following toe touch weight-bearing precautions to include shower/bed/chair with stand by assistance only. Patient will increase upper extremity strength by one manual muscle grade bilaterally to 5/5. Patient will tolerate 30 minutes of upper extremity strengthening program before becoming fatigued. Long-Term Goals: To be met following discharge from inpatient: Patient will return home following all weight-bearing precautions. Patient will be independent with all ADL and iADL tasks. TREATMENT PLAN: Patient will be seen B.I.D during the week and one time per day over the weekend as an inpatient to address the above goals and objectives. INITIAL TREATMENT: Treatment today consisted of the initial evaluation activities only. MUNA
[2017-08-02] MEDS: Lactated Ringers 1,000 ML PRIMARY IV SCH (15:25)
[2017-08-02] MEDS: MAG HYDROX/AL HYDROX/SIMETH 30 ML SUSP PO PRN (20:32)
[2017-08-02] MEDS: Rosuvastatin Tab 20 MG TAB PO SCH (20:33)
[2017-08-02] MEDS ORDERED: Esomeprazole DR 20mg Capsule PO SCH (21:00)
[2017-08-03] MEDS: diphenhydrAMINE 25 MG CAPSULE PO PRN (02:00)
[2017-08-03] MEDS: HYDROcodone-APAP 7.5 MG-325 MG TABLET PO PRN ×2 (02:00→08:33)
[2017-08-03 05:47] LABS: Hematocrit [HCT] 35.3 % (42.0-52.0); Hemoglobin [HGB] 12.1 g/dL (14.0-18.0); MEAN CORPUSCULAR HEMOGLOBIN 31.2 PG (27-31); MEAN CORPUSCULAR HGB CONC 34.3 g/dL (33-37); MEAN PLATELET VOLUME 11.2 FL (7.4-12.2); RED BLOOD COUNT 3.88 10^6/uL (4.70-6.10)
[2017-08-03 05:54] LABS: BLOOD UREA NITROGEN 19 mg/dL (7-22); BUN/CREATININE RATIO 23.75 (6-20)
[2017-08-03 06:58] VITALS: RESP 18
--- NOTE | 2017-08-03 08:12 | OT.PROG ---
Progress Note Progress Note: Occupational Therapy: 15 min S: pt stated he was in some pain and was willing to do therapy while laying in bed. O: pt competed YTB exercises of biceps x30, triceps x30, chest pulls x30, flexion x30, abduction x30, horizontal abduction x30. pt completed 1# BUE exercises of biceps x30, punch outs x30, shoulder press x30, chest press x30. A: pt tolerated session well. P:Continue poc
[2017-08-03] MEDS: Multivitamin Tab 1 TAB PO SCH (08:27)
[2017-08-03] MEDS: LORATADINE 10 MG TABLET PO SCH (08:27)
[2017-08-03] MEDS: Calcium/Vit D 600mg/400u Tab 1 TAB TABLET PO SCH (08:27)
[2017-08-03] MEDS: ASPIRIN 325 MG EC TABLET PO SCH (08:27)
[2017-08-03] MEDS: CARVEDILOL 12.5 MG TABLET PO SCH (08:27)
[2017-08-03] MEDS: Beta Carot W/Vit E,C,Min Tab 1 TAB TAB PO SCH (08:28)
[2017-08-03] MEDS: NIFEdipine 30 MG ER 24H TABLET PO SCH (08:28)
[2017-08-03] MEDS: Vitamin E Cap 400 IU CAP PO SCH (08:28)
[2017-08-03] MEDS: Olmesartan Tab 40 MG TAB PO SCH (08:28)
[2017-08-03] MEDS: DOCUSATE 100 MG CAPSULE PO SCH (08:28)
[2017-08-03] MEDS: ESCITALOPRAM 10 MG TABLET PO SCH (08:28)
--- NOTE | 2017-08-03 10:27 | OT.PROG ---
Progress Note Progress Note: Occupational Therapy: 20 min S: pt stated he was feeling better this morning than he was yesterday. O: pt completed Blue TB exercises of biceps x30, triceps x30, flexion x30, extension x30, chest pulls x30. pt completed 4# BUE exercises of biceps x30, shoulder flexion x30, chest press x30. pt completed green flexbar exercises of pronation x15, supination x15, wrist flexion and extension x15. A: pt tolerated session well. P: continue POC
[2017-08-03 11:29] VITALS: BP 107/70; TEMP 97.7; O2SAT 96
--- NOTE | 2017-08-03 11:53 | ORTHO.PROG ---
Last Taken Vital Signs: Vital Signs - Last Taken Temperature 97.7 F 08/03/17 11:27 Pulse Rate 70 08/03/17 11:27 Respiratory Rate 18 08/03/17 11:27 Blood Pressure 107/70 08/03/17 11:27 Pulse Ox 96 08/03/17 11:27 Subjective: Patient is doing well notes pain well controlled on oral medications. Objective: Dressing was changed the leg is clean and dry a Silverlon dressing was placed. He has popliteal adductor hiatus or thigh pain. Motor and sensory exam is nonfocal he has full extension flexion to 70. Patient with a 1+ effusion. There is no active drainage. Laboratory Results 08/03/17 08/03/17 08/03/17 Range/Units 04:29 04:29 08:44 WBC 7.78 (4.8-10.8) 10^3/uL RBC 3.88 L (4.70-6.10) 10^6/uL Hgb 12.1 L (14.0-18.0) g/dL Hct 35.3 L (42.0-52.0) % MCV 91.0 H (80-90) FL MCH 31.2 H (27-31) PG MCHC 34.3 (33-37) g/dL RDW Std Deviation 44.1 (39-50) fL RDW Coeff of Dinesh 13.6 (11.5-14.5) % Plt Count 151 (140-350) 10*3/uL MPV 11.2 (7.4-12.2) FL Sodium 136 (135-145) meq/L Potassium 4.2 (3.8-5.2) meq/L Chloride 97 L (98-112) meq/L Carbon Dioxide 29 (23-33) meq/L Anion Gap 10 (5-20) BUN 19 (7-22) mg/dL Creatinine 0.8 (0.70-1.50) mg/dL Estimated GFR > 60 (>60 ml/min/1.73m(2)) BUN/Creatinine Ratio 23.75 H (6-20) Glucose 119 H (78-110) mg/dL Calculated Osmolality 284.0 (267-292) mOsm/kg Calcium 8.5 L (8.7-10.7) mg/dL Vancomycin Trough 9.91 (5.0-10.0) ug/ml Vital Signs (24 hrs) Temp Pulse Resp BP BP Pulse Ox 08/03/17 11:27 97.7 F 70 18 107/70 96 08/03/17 06:57 97 F 76 18 123/87 95 08/03/17 06:45 95 08/03/17 05:00 96.8 F 78 16 119/84 94 08/03/17 04:00 90 08/03/17 01:00 97.4 F 82 110/79 93 08/02/17 20:51 97.6 F 86 16 106/89 92 08/02/17 19:00 86 08/02/17 15:49 98.4 F 76 20 119/79 95 The deep cultures and superficial cultures both aerobic and anaerobic grew out no organisms and both Gram stains were negative Assessment: Right washout and exploration of right knee for excessive bleeding Plan: Patient will be discharged home today and he will follow-up in clinic at the beginning of the week to check the incision. If he is doing well we will proceed with a left unicompartmental knee replacement. DVT prophylaxis in the meantime with pneumatic sequential devices and aspirin
--- NOTE | 2017-08-03 12:23 | DCSUMMARY ---
Hospitalization Summary Admit Date: 07/31/2017 Discharge Date: 08/03/17 Hospital Course: Discharge diagnoses 1. Wound drainage/ bleeding, status post washout 2. Status post right unicompartmental knee replacement 3. Hypertension 4. Hypercholesterolemia 5. Osteoarthritis 6. History of low testosterone 7. GERD Hospital course This is a 66 years old male with medical history significant for history of hypertension, hypercholesterolemia, anxiety who had right knee surgery last week was done by Dr. Krishnamurthy where he had right unicompartmental knee replacement. He was discharged on the to go home but apparently after discharge started to have noticed more drainage from the wound and also bleeding so he was admitted by Dr. Krishnamurthy on the and had a washout of the knee in addition cultures were taking and he was given vancomycin after that. The hospitalist service were consulted for management of medical issues. We continued with the same plan we continued with vancomycin and as the cultures came back negative he was discharged home. Initially had some issues with pain control however this improved. Patient was discharged on his previous medication he will follow-up with Dr. Krishnamurthy on Sunday and then if he still doing ok there is a plan for him to have left knee surgery coming Sunday. Laboratory Results 08/03/17 08/03/17 08/03/17 Range/Units 04:29 04:29 08:44 WBC 7.78 (4.8-10.8) 10^3/uL RBC 3.88 L (4.70-6.10) 10^6/uL Hgb 12.1 L (14.0-18.0) g/dL Hct 35.3 L (42.0-52.0) % MCV 91.0 H (80-90) FL MCH 31.2 H (27-31) PG MCHC 34.3 (33-37) g/dL RDW Std Deviation 44.1 (39-50) fL RDW Coeff of Dinesh 13.6 (11.5-14.5) % Plt Count 151 (140-350) 10*3/uL MPV 11.2 (7.4-12.2) FL Sodium 136 (135-145) meq/L Potassium 4.2 (3.8-5.2) meq/L Chloride 97 L (98-112) meq/L Carbon Dioxide 29 (23-33) meq/L Anion Gap 10 (5-20) BUN 19 (7-22) mg/dL Creatinine 0.8 (0.70-1.50) mg/dL Estimated GFR > 60 (>60 ml/min/1.73m(2)) BUN/Creatinine Ratio 23.75 H (6-20) Glucose 119 H (78-110) mg/dL Calculated Osmolality 284.0 (267-292) mOsm/kg Calcium 8.5 L (8.7-10.7) mg/dL Vancomycin Trough 9.91 (5.0-10.0) ug/ml Discharge instruction Diet regular Activity as started Medications Current Medication(s) 3 Medication Instructions Recorded Confirmed Type Calcium Carbonate [Calcium] 1 tab PO QD #90 tab 12/28/14 07/31/17 History Multivitamin [Multivitamins] 1 tab PO DAILY #90 tab 12/28/14 07/31/17 History Mv-Min/Vit C/Glu/Rose HCl/Hc124 1 tab PO QD #30 tab 03/23/15 07/31/17 History [Airborne Tablet Chewable] carvedilol 25 mg tablet 25 mg PO BID #180 tab 01/15/17 07/31/17 Rx olmesartan 40 mg tablet 40 mg PO QDAY #90 tab 01/15/17 07/31/17 Rx testosterone cypionate 200 mg/mL 300 mg IM MONTHLY #4 vial 01/15/17 07/26/17 Rx intramuscular oil cetirizine 10 mg capsule 10 mg PO DAILY cap 04/25/17 07/31/17 History cholecalciferol (vitamin D3) 5,000 5,000 unit PO QD #90 cap 04/25/17 07/31/17 History unit capsule vitamin E mixed 400 unit capsule 400 unit PO QD #30 cap 04/25/17 07/31/17 History rosuvastatin 10 mg tablet 10 mg PO QDAY #90 tab 05/04/17 07/31/17 Rx escitalopram 20 mg tablet 20 mg PO DAILY #90 tab 05/21/17 07/31/17 Rx nifedipine ER 30 mg 30 mg PO BID #10 tab 05/25/17 07/31/17 Rx tablet,extended release 24 hr Albuterol Sulfate [Proair Hfa] 2 puff INH ONCE PRN 07/26/17 07/31/17 History Acetaminophen [Tylenol] 325 - 650 mg PO Q4H PRN tab 07/28/17 07/31/17 Rx Aspirin EC 325 mg PO BID tab 07/28/17 07/31/17 Rx HYDROcodone/APAP 7.5/325 Tab 1 - 2 tab PO Q4H PRN #50 tab 08/03/17 Rx [[place] 7.5/325 Tab] Follow-up with the PCP, follow-up with Dr. Krishnamurthy as scheduled coming Sunday Condition at discharge was stable for discharge Exam - Vitals Vital Signs: Vital Signs Temperature 97.7 F Temperature Source Temporal Artery Scan Pulse Rate [Pulse Oximeter] 70 Pulse Rate 94 Respiratory Rate 18 Blood Pressure [Right Arm] 107/70 Blood Pressure [Left Arm] 123/87 Blood Pressure 144/99 Pulse Ox 96 Oxygen Flow Rate 1 Oxygen Delivery Method Room Air Height 5 ft 9 in Weight 229 lb 6.4 oz - General General Appearance: No Acute Distress, Cooperative - Head Head Exam: Normal Inspection - Eye Eye Exam: POSITIVE: Normal Appearance - ENT ENT Exam: POSITIVE: Normal Exam - Neck Neck Exam: Normal Inspection - Respiratory Respiratory Exam: POSITIVE: Clear to Auscultation - Bilaterally - Cardiovascular Cardiovascular Exam: POSITIVE: RRR - GI/Abdominal GI/Abdominal Exam: POSITIVE: Normal Bowel Sounds, Non Tender, Non Distended, Soft, No Organomegaly - Rectal Rectal Exam: POSITIVE: Deferred - External Exam: POSITIVE: Deferred - Extremities Additional Extremities Exam Details: Dressing applied to the right knee. - Back Back Exam: POSITIVE: Normal Inspection - Neurological Neurological Exam: POSITIVE: Alert, Oriented x 3, CN II-XII Intact, Speech Intact / Clear, Moves All Extremities Equally - Psychiatric Psychiatric Exam: POSITIVE: Normal Affect Patient Problems - Patient Problem List (1) Wound drainage Current Visit: Yes Status: Acute Code(s): T14.8XXA - Other injury of unspecified body region, initial encounter Category: Medical (2) Hypertension Current Visit: No Status: Chronic Code(s): I10 - Essential (primary) hypertension Qualifiers: Hypertension type: essential hypertension Qualified Code(s): I10 - Essential (primary) hypertension Category: Medical (3) Hypercholesterolemia Current Visit: No Status: Chronic Code(s): E78.00 - Pure hypercholesterolemia, unspecified Category: Medical (4) Depression (emotion) Current Visit: No Status: Chronic Code(s): F32.9 - Major depressive disorder , single episode, unspecified Qualifiers: Depression Type: reactive depression Qualified Code(s): F32.9 - Major depressive disorder, single episode, unspecified Category: Medical (5) DVT prophylaxis Current Visit: Yes Status: Acute Category: Medical (6) GERD (gastroesophageal reflux disease) Current Visit: No Status: Chronic Onset Date: 12/28/14 Code(s): K21.9 - Gastro-esophageal reflux disease without esophagitis Category: Medical
--- NOTE | 2017-08-03 13:35 | PT.PROG ---
Progress Note Progress Note: S: Pt rates pain as 4/10 and states that he is feeling much better than yesterday. He reports that he lives in a split level home with a full flight of stairs and spouse is home during the day to assist as needed. O: Pt ambulated from room to therapy gym with standard walker approximately 200 feet with several standing rest breaks. Frequent reminders were needed to maintain TTWB precautions. LE exercises performed x 12 each: isometric knee extension, isometric knee flexion, SLR, supine hip abduction/adduction, 4-way ankle with red theraband, step-ups onto #2 box. 5 repetitions of sit-to stands performed while maintaining WB precautions. Pt ascended/descended full flight of stairs in anticipation of returning home this afternoon. Demonstrated correct sequence of stair climbing while maintaining WB precautions using the rail in the right hand and walker in left hand. At the conclusion of therapy, pt ambulated back to room and seated in bedside chair. Call button within reach and alarms activated. Dr. Krishnamurthy in room to change right knee dressing. A: Pt demonstrated correct sequencing to ascend/descend a full flight of stairs in anticipation of returning home. He requires cues during ambulation to maintain TTWB precautions, but is safe while ambulating with a standard walker. P: Continue with POC in order to increase functional independence and decrease fall risk. Submitted by: KYARA Tang Supervised by: Crystal Byrd DPT
== END 2017-08-03 12:56 | disposition home or self-care (01) | DRG 909 ==
LOC: OPS 10:22 → MED/SURG 16:24
PROVIDERS: ADMIT Orthopaedic Surgery; ATTEND Orthopaedic Surgery

== ENCOUNTER 2017-08-07 06:13 | Inpatient (IN) ==
[~2017-08-07 06:13] MED LIST changes: -DEXAMETHASONE PF 10 MG/1 ML VIAL ONE; -LIDOCAINE HCL 1%/EPI 1:100,000 - 20 ML VIAL ONE; +Lactated Ringers 1,000 ML PRIMARY IV SCH; -MEPIVACAINE HCL/PF 20 MG/1 ML ONE; -MIDAZOLAM 5 MG/1 ML ONE; -ceFAZolin Inj 2gm (Premix) 0 GM/0 ML BAG IV ONE; -fentaNYL Inj 250 MCG/5 ML VIAL ONE
[2017-08-07 06:35] LABS: BILIRUBIN,URINE NEGATIVE (NEG); CLARITY,URINE CLEAR (CLEAR); COLOR,URINE YELLOW (Y); GLUCOSE, URINE (UA) NEGATIVE (NEG); OCCULT BLOOD,URINE NEGATIVE (NEG); PH,URINE 7.5 (5.0-8.5); PROTEIN,URINE NEGATIVE (NEG); UROBILINOGEN,URINE 0.2 EU/dL (0.2)
[2017-08-07 06:37] LABS: URINE SAMPLE TYPE CLEAN CATCH URINE
[2017-08-07] MEDS ORDERED: MIDAZOLAM 5 MG/1 ML ONE (07:17)
[2017-08-07] MEDS ORDERED: LIDOCAINE 2%/ EPI 1:200,000 - 20 ML VIAL ONE (07:17)
[2017-08-07] MEDS ORDERED: Sodium Chloride 0.9% vial 20 ML ONE (07:18)
[2017-08-07] MEDS ORDERED: Gentamicin Inj 40 MG/ML VIAL ONE (07:18)
[2017-08-07] MEDS ORDERED: fentaNYL Inj 250 MCG/5 ML VIAL ONE (07:18)
[2017-08-07] MEDS ORDERED: BUPivacaine Inj 0.5% PF (5mg/ml) 30ml vial ONE (07:18)
[2017-08-07] MEDS ORDERED: BUPivacaine Liposome/PF (Exparel) Inj 20ml vial INFIL ONE (07:19)
[2017-08-07] MEDS ORDERED: HEPARIN 10,000 UNIT/1 ML ONE (07:19)
[2017-08-07 07:20] LABS: Hematocrit [HCT] 38.8 % (42.0-52.0); Hemoglobin [HGB] 13.5 g/dL (14.0-18.0); MEAN CORPUSCULAR HEMOGLOBIN 31.2 PG (27-31); MEAN CORPUSCULAR HGB CONC 34.8 g/dL (33-37); MEAN CORPUSCULAR VOLUME 89.6 FL (80-90); MEAN PLATELET VOLUME 9.8 FL (7.4-12.2); RED BLOOD COUNT 4.33 10^6/uL (4.70-6.10)
[2017-08-07] MEDS ORDERED: Sodium Chloride 0.9% 2,000 ML ONE (07:40)
[2017-08-07] MEDS ORDERED: Sodium Chloride 0.9% 500 ML ONE (07:40)
[2017-08-07] MEDS ORDERED: PROPOFOL 10 MG/1 ML (200 MG/20 ML) VIAL IV ONE (07:51)
[2017-08-07] MEDS ORDERED: LIDOCAINE MPF 2% - 5 ML (20 MG/1 ML) ONE ×2 (07:51→10:31)
--- NOTE | 2017-08-07 08:49 | CRNA.PROCE ---
Nerve Block Documentation - - Type of Nerve Block Used: Left Adductor Canal Nerve Block Position for Nerve Block: Supine Moniters Used During Block: EKG, SPO2, NIBP Oxygen Supplemented: Yes Sedation Used - Enter Amount in Comment Field [ANES.SEDAT]: Midazolam (mg): Yes (4mg), Fentanyl (mcg): Yes (150mcg) Skin Prep Used: ChloroPrep Technique: Ultrasound Nerve Block Needle Used: EchoBright 100 mm Local Anesthetic - Enter Amt in Comment Field [ANES.LOCNB]: 0.5 % Bupivacaine Plain (mL): Yes (20ml), 2 % Xylocaine with Epinephrine 1:200,000 (mL): Yes (20ml ) Additives to Nerve Blocks: Dexamethasone (mg): Yes (8mg(2ml)) - - PreOp Block : Time In: 07:25 PreOp Block : Time Out: 07:50 Anesthesia Time - Other Weight: 99.79 kg Height: 5 ft 9 in Body Mass Index (BMI): 32.5
[2017-08-07] MEDS ORDERED: Lactated Ringers 2,000 ML PRIMARY IV ONE (10:19)
--- NOTE | 2017-08-07 11:11 | ORTHO.OP ---
- - -: See Dictated Operative Report Procedure Codes - Lower Extremity/Knee Procedures Primary Lower Extremity Procedure Code: 95372 : UKA (tomeka walker assisted, left knee)
[2017-08-07] MEDS ORDERED: diphenhydrAMINE 25 MG CAPSULE PO PRN (11:13)
[2017-08-07] MEDS ORDERED: MAG HYDROX/AL HYDROX/SIMETH 30 ML SUSP PO PRN ×2 (11:13→12:41)
[2017-08-07] MEDS ORDERED: Ondansetron ODT Tab 8 MG TAB PO PRN ×2 (11:13→12:41)
[2017-08-07] MEDS ORDERED: HYDROcodone-APAP 7.5 MG-325 MG TABLET PO PRN (11:13)
[2017-08-07] MEDS ORDERED: ACETAMINOPHEN 325 MG TABLET PO PRN ×2 (11:13→12:41)
[2017-08-07] MEDS ORDERED: IBUPROFEN 400 MG TABLET PO PRN ×2 (11:13→12:41)
[2017-08-07] MEDS ORDERED: ONDANSETRON 4 MG/2 ML VIAL IVP PRN ×3 (11:13→12:41)
[2017-08-07] MEDS ORDERED: BISACODYL 5 MG TABLET PO PRN ×2 (11:13→12:41)
[2017-08-07] MEDS ORDERED: HYDROmorphone 2 MG/1 ML IVP PRN ×3 (11:13→12:41)
[2017-08-07] MEDS ORDERED: CALCIUM CARBONATE 500 MG (TUMS) CHEWABLE TABLET PO PRN ×2 (11:13→12:41)
[2017-08-07] MEDS ORDERED: NORMAL SALINE 10 ML SYRINGE FLUSH IVP PRN ×3 (11:13→12:41)
[2017-08-07] MEDS ORDERED: BISACODYL 10 MG SUPPOSITORY RECTAL PRN ×2 (11:13→12:41)
[2017-08-07] MEDS ORDERED: Prochlorperazine Tab 10 MG TAB PO PRN ×2 (11:13→12:41)
[2017-08-07] MEDS ORDERED: Lactated Ringers 1,000 ML PRIMARY IV SCH (11:15)
[2017-08-07] MEDS ORDERED: LIDOCAINE W/ SODIUM BICARB 0.5 ML SYR SUBD PRN (11:30)
--- NOTE | 2017-08-07 11:32 | CRNA.PROGR ---
Anesthesia Recovery Phase I - Post Anesthesia Evaluation Patient's Condition on Arrival in Phase I: Stable Patient's Condition on Arrival in Phase II: Stable Pain Level: 0
--- NOTE | 2017-08-07 11:33 | CRNA.PROGR ---
Anesthesia Time - - Start date: 08/07/17 End date: 08/07/17 - Procedure/Recovery Time Anesthesia : Time In: 07:57 - Block Time PreOp Block : Time In: 07:25 PreOp Block : Time Out: 07:50 PreOp Block : Total Time: 25 - Total Anesthesia Time Total Anesthesia Time (minutes): 25 - Other Weight: 99.79 kg Height: 5 ft 9 in Body Mass Index (BMI): 32.5 Physical Status: P2 Anesthesia Type: General Anesthesia : ET
[2017-08-07] MEDS ORDERED: PNEUMOCOCCAL 23 VACCINE 25 MCG/0.5 ML VIAL IM ONE (12:35)
[2017-08-07] MEDS ORDERED: ALBUTEROL SULFATE 8.5 GM HFA INHALER INH PRN (12:38)
[2017-08-07] MEDS ORDERED: CHOLECALCIFEROL 5000 UNIT PO SCH (12:45)
[2017-08-07] MEDS ORDERED: TESTOSTERONE CYPIONATE 300 MG IM SCH (12:45)
--- NOTE | 2017-08-07 13:20 | DI ---
LEFT KNEE, 08/07/2017 11:11 AM: Clinical History: Status post medial compartment knee replacement. Osteoarthritis. Previous Exam: 02/01/2017. AP and lateral views are submitted. The patient is status post medial compartment left knee replaceme nt. The prosthetic joint articulates normally. Reading: Status post medial left knee replacement. The prosthetic joint articulates normally.
[2017-08-07] MEDS: HYDROcodone-APAP 7.5 MG-325 MG TABLET PO PRN ×2 (13:52→20:38)
[2017-08-07] MEDS: Lactated Ringers 1,000 ML PRIMARY IV SCH (14:16)
--- NOTE | 2017-08-07 14:37 | ORTHO.PROG ---
Last Taken Vital Signs: Vital Signs - Last Taken Temperature 97.2 F 08/07/17 13:39 Pulse Rate 93 08/07/17 13:39 Respiratory Rate 19 08/07/17 13:39 Blood Pressure 151/98 08/07/17 13:39 Pulse Ox 98 08/07/17 13:39 Subjective: Patient states he is doing well today with no significant pain of the left knee after surgery Objective: Patient with good motor function in the right lower extremity with dressing in place clean and dry the left knee has good range of motion of the foot and ankle and can do a straight leg raise. Dressing is in place. Motor and sensory exam is generally intact bilaterally Laboratory Results 08/07/17 08/07/17 08/07/17 Range/Units 06:00 07:05 07:05 WBC 7.20 (4.8-10.8) 10^3/uL RBC 4.33 L (4.70-6.10) 10^6/uL Hgb 13.5 L (14.0-18.0) g/dL Hct 38.8 L (42.0-52.0) % MCV 89.6 (80-90) FL MCH 31.2 H (27-31) PG MCHC 34.8 (33-37) g/dL RDW Std Deviation 43.1 (39-50) fL RDW Coeff of Dinesh 13.4 (11.5-14.5) % Plt Count 284 (140-350) 10*3/uL MPV 9.8 (7.4-12.2) FL Ur Collection Type Clean catch urine Urine Color Yellow (Y) Urine Clarity Clear (CLEAR) Urine pH 7.5 (5.0-8.5) Ur Specific [place] 1.015 (1.005-1.030) Urine Protein Negative (NEG) mg/dl Urine Glucose (UA) Negative (NEG) mg/dL Urine Ketones Negative (NEG) Urine Occult Blood Negative (NEG) Urine Nitrate Negative (NEG) Urine Bilirubin Negative (NEG) Urine Urobilinogen 0.2 (0.2) EU/dL Ur Leukocyte Esterase Negative (NEG) Blood Type AB POSITIVE Antibody Screen Negative Assessment: Patient with a left unicompartmental knee replacement overall doing well, patient with right unicompartmental knee replacement approximately 10 days ago with excessive bleeding which required exploration and washout doing well Plan: Patient will work with physical therapy and occupational therapy, pneumatic sequential devices both legs. We'll also be vigilant with icing to keep the swelling down. Weightbearing as tolerated. Pain control
[2017-08-07] MEDS ORDERED: ceFAZolin Inj 2gm (Premix) 2 GM/50 ML BAG IV SCH (16:00)
[2017-08-07] MEDS: ceFAZolin Inj 2gm (Premix) 2 GM/50 ML BAG IV SCH ×2 (16:16→23:14)
[2017-08-07] MEDS: Esomeprazole DR 20mg Capsule PO SCH (20:38)
[2017-08-07] MEDS: ASPIRIN 325 MG EC TABLET PO SCH (20:38)
[2017-08-07] MEDS: NIFEdipine 30 MG ER 24H TABLET PO SCH (20:38)
[2017-08-07] MEDS: Rosuvastatin Tab 20 MG TAB PO SCH (20:38)
[2017-08-07] MEDS: DOCUSATE 100 MG CAPSULE PO SCH (20:38)
[2017-08-07] MEDS: diphenhydrAMINE 25 MG CAPSULE PO PRN (20:38)
[2017-08-07] MEDS: CARVEDILOL 12.5 MG TABLET PO SCH (20:38)
[2017-08-07] MEDS ORDERED: DOCUSATE 100 MG CAPSULE PO SCH (21:00)
[2017-08-08 05:41] LABS: Hemoglobin [HGB] 11.8 g/dL (14.0-18.0); MEAN CORPUSCULAR HEMOGLOBIN 31.1 PG (27-31); MEAN CORPUSCULAR HGB CONC 34.7 g/dL (33-37); MEAN CORPUSCULAR VOLUME 89.5 FL (80-90); MEAN PLATELET VOLUME 9.7 FL (7.4-12.2); RED BLOOD COUNT 3.8 10^6/uL (4.70-6.10)
[2017-08-08 05:51] LABS: BLOOD UREA NITROGEN 15 mg/dL (7-22); BUN/CREATININE RATIO 18.75 (6-20)
[2017-08-08] MEDS: HYDROcodone-APAP 7.5 MG-325 MG TABLET PO PRN ×5 (06:52→21:38)
--- NOTE | 2017-08-08 07:57 | ORTHO.PROG ---
Last Taken Vital Signs: Vital Signs - Last Taken Temperature 98.1 F 08/08/17 06:49 Pulse Rate 88 08/08/17 06:49 Respiratory Rate 16 08/08/17 07:00 Blood Pressure 156/99 08/08/17 06:49 Pulse Ox 94 08/08/17 06:49 Subjective: Patient notes to be doing well pain is well controlled on oral medications. Patient notes he stood with therapy last night and did fine with no significant discomfort Objective: Both legs with good motor and sensory examination of the ankle foot with good pulses brisk refill little bruising on the right posterior aspect of the calf and little anterior. The left leg hasn't stressing in place it's clean and dry as well as the right dressing. No calf pain or thigh pain. Very minimal swelling side to side. Laboratory Results 08/07/17 08/08/17 08/08/17 Range/Units 07:05 04:24 04:24 WBC 13.28 H (4.8-10.8) 10^3/uL RBC 3.80 L (4.70-6.10) 10^6/uL Hgb 11.8 L (14.0-18.0) g/dL Hct 34.0 L (42.0-52.0) % MCV 89.5 (80-90) FL MCH 31.1 H (27-31) PG MCHC 34.7 (33-37) g/dL RDW Std Deviation 42.1 (39-50) fL RDW Coeff of Dinesh 13.3 (11.5-14.5) % Plt Count 255 (140-350) 10*3/uL MPV 9.7 (7.4-12.2) FL Sodium 138 (135-145) meq/L Potassium 3.9 (3.8-5.2) meq/L Chloride 100 (98-112) meq/L Carbon Dioxide 24 (23-33) meq/L Anion Gap 14 (5-20) BUN 15 (7-22) mg/dL Creatinine 0.8 (0.70-1.50) mg/dL Estimated GFR > 60 (>60 ml/min/1.73m(2)) BUN/Creatinine Ratio 18.75 (6-20) Glucose 145 H (78-110) mg/dL Calculated Osmolality 289.0 (267-292) mOsm/kg Calcium 9.1 (8.7-10.7) mg/dL Blood Type AB POSITIVE Antibody Screen Negative Vital Signs (24 hrs) Temp Pulse Pulse Resp BP BP Pulse Ox 08/08/17 07:00 16 08/08/17 06:49 98.1 F 88 12 156/99 94 08/08/17 04:48 95 08/08/17 04:47 98.0 F 92 20 154/104 93 08/07/17 23:19 98.1 F 96 20 147/101 92 08/07/17 20:32 98.4 F 103 H 20 172/114 94 08/07/17 20:20 92 08/07/17 15:40 98.7 F 106 H 18 147/109 96 08/07/17 15:00 96 08/07/17 13:39 97.2 F 93 19 151/98 98 08/07/17 12:50 97.4 F 88 20 151/97 97 08/07/17 12:35 97.1 F 83 20 143/78 98 08/07/17 12:13 97 F 83 19 135/96 96 08/07/17 11:55 97.3 F 79 14 126/89 97 08/07/17 11:52 97.3 F 77 16 130/86 97 08/07/17 11:45 97.2 F 77 16 129/87 96 08/07/17 11:40 97.4 F 78 15 131/84 96 08/07/17 11:35 97.4 F 76 12 126/87 96 08/07/17 11:30 97.3 F 77 16 125/79 96 08/07/17 11:25 97.3 F 77 15 122/88 96 08/07/17 11:20 97.3 F 71 12 121/82 94 Assessment: Left unicompartmental knee replacement, right unicompartmental knee replacement approximately 10 days ago Anemia Plan: Work with physical therapy for mobilization, DVT prophylaxis with aspirin and pneumatic sequential devices. Pain control
[2017-08-08] MEDS: Vitamin E Cap 400 IU CAP PO SCH (08:17)
[2017-08-08] MEDS: ASPIRIN 325 MG EC TABLET PO SCH ×2 (08:17→20:35)
[2017-08-08] MEDS: Olmesartan Tab 40 MG TAB PO SCH (08:18)
[2017-08-08] MEDS: DOCUSATE 100 MG CAPSULE PO SCH ×2 (08:18→20:35)
[2017-08-08] MEDS: NIFEdipine 30 MG ER 24H TABLET PO SCH ×2 (08:18→20:35)
[2017-08-08] MEDS: ESCITALOPRAM 10 MG TABLET PO SCH (08:18)
[2017-08-08] MEDS: Multivitamin Tab 1 TAB PO SCH (08:18)
[2017-08-08] MEDS: CARVEDILOL 12.5 MG TABLET PO SCH ×2 (08:18→20:35)
[2017-08-08] MEDS ORDERED: ASPIRIN 325 MG EC TABLET PO SCH (09:00)
--- NOTE | 2017-08-08 10:20 | PT.PROG ---
Progress Note Progress Note: S. Patient stated that his left knee is stiff and sore this morning. He reports his right knee feels great. O. Patient ambulated 70 feet to the wheelchair and was wheeled to the therapy gym where he had heat to his knees then performed exercises in the form of; heel slides, quad sets, ankle pumps, short arc quads, straight leg raises, hip abduction/adduction all x 10 bilaterally. Patient performed 5 sit to stands then ambulated 175 feet back to his room where he was left in his chair with alarm and call light. A. Patient tolerated therapy well this morning, he is struggling with pain and stiffness in his left knee and was unable to perform more sit to stands due to pain. Patient would continue to benefit from skilled therapy to increase strength and mobility. P. Continue POC.
--- NOTE | 2017-08-08 10:58 | CONSULT ---
Consult Note - Consult Primary Care Provider: Rosalind Schuster MD - History of Present Illness History of Present Illness: Is a very nice 60-year-old male with past medical history significant for elevated cholesterol and hypertension has bilateral knee osteoarthritis had is the right knee done and replaced last admission he is now in any status post left total knee replacement. Patient denies any chest pain nausea or vomiting hospitalist service was consulted for hypertension Past Medical History Medical History: 1. HTN. 2. hypercholesterolemia. 3. osteoarthritis. 4. low testosterone. 5. GERD. 6. Depression, well controlled. Surgical History: 1. outside of knee surgery today, none Pertinent Family History: significant for heart attack in in father, and stroke in mother. Past Social History: almost 10 years. second marriage. had one son who is . no smoking tobacco, drinks occasional alcohol. lives in [place], [place]. Tobacco Use: Former Smoker In the Past 12 Months, Have Used or Abuse Any of the Following Substance: None Review of Systems - Review of Systems All Systems: Reviewed & No Additional Complaints Except as Stated - Respiratory Respiratory: DENIES: Negative System Review, Cough, Sputum, Dyspnea At Rest, Dyspnea with Exertion, Pleuritic Pain, Hemoptysis, Wheezing, Other, See HPI - Cardiovascular Cardiovascular: DENIES: Negative System Review, Chest Pain, Edema, Syncope, Palpitations, Orthopnea, Paroxysmal Nocturnal Dyspnea, Other, See HPI - Gastrointestinal Gastrointestinal / Abdominal: DENIES: Negative System Review, Nausea, Vomiting, Diarrhea, Constipation, Abdominal Pain, Bloody Stool, Poor Appetite, Heartburn, Regurgitation, Bloating, Lactose Intolerance, Melena, Bright Red Blood per Rectum, Other, See HPI Medication / Allergies Home Medications: Home Medications 3 Medication Instructions Recorded Confirmed Type Calcium Carbonate [Calcium] 1 tab PO QD #90 tab 12/28/14 08/07/17 History Multivitamin [Multivitamins] 1 tab PO DAILY #90 tab 12/28/14 08/07/17 History Mv-Min/Vit C/Glu/Rose HCl/Hc124 1 tab PO QD #30 tab 03/23/15 08/07/17 History [Airborne Tablet Chewable] carvedilol 25 mg tablet 25 mg PO BID #180 tab 01/15/17 08/07/17 Rx olmesartan 40 mg tablet 40 mg PO QDAY #90 tab 01/15/17 08/07/17 Rx testosterone cypionate 200 mg/mL 300 mg IM MONTHLY #4 vial 01/15/17 08/07/17 Rx intramuscular oil cetirizine 10 mg capsule 10 mg PO DAILY cap 04/25/17 08/07/17 History cholecalciferol (vitamin D3) 5,000 5,000 unit PO QD #90 cap 04/25/17 08/07/17 History unit capsule vitamin E mixed 400 unit capsule 400 unit PO QD #30 cap 04/25/17 08/07/17 History rosuvastatin 10 mg tablet 10 mg PO QDAY #90 tab 05/04/17 08/07/17 Rx escitalopram 20 mg tablet 20 mg PO DAILY #90 tab 05/21/17 08/07/17 Rx nifedipine ER 30 mg 30 mg PO BID #10 tab 05/25/17 08/07/17 Rx tablet,extended release 24 hr Albuterol Sulfate [Proair Hfa] 2 puff INH ONCE PRN 07/26/17 08/07/17 History Aspirin EC 325 mg PO BID tab 07/28/17 08/07/17 Rx HYDROcodone/APAP 7.5/325 Tab 1 - 2 tab PO Q4H PRN #50 tab 08/03/17 08/07/17 Rx [[place] 7.5/325 Tab] Esomeprazole Magnesium [Nexium] 20 mg PO 08/07/17 History Allergies/Adverse Reactions: Allergies 3 Allergy/AdvReac Type Severity Reaction Status Date / Time No Known Allergies Allergy Verified 08/07/17 06:35 Exam - Vitals Vital Signs: Vital Signs Temperature 98.1 F Temperature Source Temporal Artery Scan Pulse Rate [Pulse Oximeter] 88 Pulse Rate 79 Respiratory Rate 16 Blood Pressure [Right Arm] 156/99 Blood Pressure 126/89 Pulse Ox 94 Oxygen Flow Rate .5 Oxygen Delivery Method Room Air Height 5 ft 9 in Weight 222 lb 11.2 oz Results - Labs CBC and BMP: 08/08/17 04:24 08/08/17 04:24 Assessment and Plan - Patient Problems (1) Hypertension Current Visit: Yes Status: Acute Comment: Patient is on 2 agents blood pressure in the 150 range I discussed this with the patient I believe that because of his left knee replacement status post surgery and physical therapy as been causing some pain and discomfort which are responsible most likely for his blood pressure I will not start any new medication at present time since this is a an adaptive physiologic response to the pain patient agrees and does not want any new medication Code(s): I10 - Essential (primary) hypertension (2) Status post left knee replacement Current Visit: Yes Status: Acute Comment: Deferred to Dr. Krishnamurthy for PTOT and anticoagulation Code(s): Z96.652 - Presence of left artificial knee joint (3) Bilateral primary osteoarthritis of knee Current Visit: No Status: Chronic Onset Date: 11/03/15 Code(s): M17.0 - Bilateral primary osteoarthritis of knee (4) Elevated WBCs Current Visit: Yes Status: Acute Comment: Most likely reactive we'll follow labs Code(s): D72.829 - Elevated white blood cell count, unspecified
--- NOTE | 2017-08-08 11:18 | CRNA.PROGR ---
Anesthesia Note - Progress Notes Anesthesia Progress Note: Post OP Anesthesia Note Pt Is sitting up at the bedside, awake alert and oriented. He states that his pain is well under control and the block is beginning to wear off. He has been able to tolerate a regular diet and denies any N/V. He has been up For PT and denies any problems with pain during PT. He denies any residual problems from the anesthesia. Current VS are stable. Vital Signs (Last 8 hours) Temp Pulse Resp BP Pulse Ox 08/08/17 07:00 16 08/08/17 06:49 98.1 F 88 12 156/99 94 08/08/17 04:48 95 08/08/17 04:47 98.0 F 92 20 154/104 93
--- NOTE | 2017-08-08 14:37 | PT.PROG ---
Progress Note Progress Note: S. Patient stated that he is having some pain in the left knee. O. Patient ambulated 175 feet to the therapy gym, where he had heat and performed exercises in the form of; heel slides, quad sets, short arc quads, ankle pumps, seated marches,all x 20 bilaterally and sit to stands x 10 Patient performed box step ups with #2 box x10. Patient ambulated 175 feet back to his room where he was left in the restroom with nursing. A. Patient tolerated therapy well this afternoon, he is struggling with a little pain in the left leg, he was able to perform box step ups leading with both legs, he continues to gain strength and endurance. He would continue to benefit from skilled therapy to perform stair training safely. P. Continue POC.
--- NOTE | 2017-08-08 14:57 | PTI REPORT ---
Thank you for the referral of Aditya Fisher. He was seen on 08/07/17 for an inpatient evaluation status post left unilateral knee replacement. SUBJECTIVE: The patient is a 66-year-old male who underwent a left unilateral knee replacement earlier today. The patient underwent a right unilateral knee replacement approximately two weeks prior and then exactly one week ago underwent an I&D on the right for an infection. The patient states that his right knee is doing much better and he has a Silverlon bandage in place on that side. The patient states that his left knee surgery went well and at this time he currently has 0/10 pain. He states that he has a little numbness in his leg but otherwise is able to perform a straight leg raise. The patient lives in [place] with his spouse in a split level home, so he has to be able to perform at least a flight of stairs as he states there are 8 stairs to get up stairs or 7 stairs to go downstairs. The patient states that he is comfortable ambulating with the walker secondary to his surgery just a couple of weeks ago and he has primarily been using that for his ambulation. He states he uses a cane at home sometimes on the stairs due to a narrow stairwell. The patient states that right after his surgery on his right knee for the I&D on 07/31/2017 he was toe touch weight-bearing on that side. PAST MEDICAL HISTORY: Past medical history can be found in the patient's medical record. OBJECTIVE FINDINGS: General observations: The patient was alert and oriented to setting upon PT arrival. The patient was laying in bed and he was on 1 liter of oxygen with an IV in place. The patient's nurse did state that the patient's blood pressure was running a little high, so we did monitor that with each position change. Pain: The patient reported 0/10 pain and states he is looking forward to doing a little moving and participating in therapy. Vitals: In a supine position the patient's blood pressure was 147/102. His oxygen saturation was at 96%. His heart rate was 105 beats per minute. The patient's blood pressure while seated was 160/100. His oxygen saturation was at 89%. His heart rate was 103 beats per minute. The patient's blood pressure while standing was 159/99, his oxygen saturation was at 93%. His heart rate was 110 beats per minute. Bed mobility: The patient was able to independently move from supine to seated edge of bed. Once seated edge of bed, the patient denied any lightheadedness or dizziness. The patient demonstrated good seated balance. The patient was educated on breathing techniques in order to get his oxygen levels back up into the 90s, which he was able to do after sitting x1 minute, but he did require verbal cueing at times when his oxygen would drop. The patient was able to go from seated to supine position independently and was able to perform bed mobility to adjust himself independently. Transfers: The patient was able to perform a sit to stand transfer with contact guard assist x1 for safety. The patient demonstrated fair initial standing balance with hand hold assist x2 on the walker. The patient was able to stand x3 minutes with hand hold assist x2 on the walker. The patient was able to perform a stand to sit transfer independently. Ambulation: We did not attempt any ambulation at this time due to the patient being connected to many lines and leads and his higher blood pressure. We are going to check with Dr. Krishnamurthy to check the weight-bearing status on the right lower extremity as he was toe touch weight-bearing following his I&D. ASSESSMENT: The patient has good rehab potential. Problem List: Pain in the right knee Decreased active and passive range of motion of the right knee Short-Term Goals: To be met by discharge from inpatient: Patient will be able to perform all transfers, safely and independently. Patient will be able to ambulate at least 150 feet with standard walker with correct weight-bearing and do so safely. Patient will be able to ascend and descent at least one flight of stairs with walker without verbal cueing. Long-Term Goals: To be met following discharge from inpatient: Patient will be seen by outpatient physical therapy in [place] for rehab on his bilateral knees. TREATMENT PLAN: Patient will be seen B.I.D during the week and one time per day over the weekend as an inpatient to work on independence and safety with transfers, ambulation, stair training, and range of motion and strengthening activities. INITIAL TREATMENT: Treatment today consisted of the initial evaluation followed by one unit of functional activities. Following treatment the patient was left in his bed with alarm set and call light within reach. MTDD
[2017-08-08] MEDS ORDERED: Pneumococcal Vacc 13 Syringe 0.5 ML DISP.SYRIN IM ONE (15:30)
[2017-08-08] MEDS: Lactated Ringers 1,000 ML PRIMARY IV SCH (15:55)
[2017-08-08] MEDS: Rosuvastatin Tab 20 MG TAB PO SCH (20:35)
[2017-08-08] MEDS: Esomeprazole DR 20mg Capsule PO SCH (20:35)
[2017-08-08] MEDS: diphenhydrAMINE 25 MG CAPSULE PO PRN (21:41)
[2017-08-09] MEDS: HYDROcodone-APAP 7.5 MG-325 MG TABLET PO PRN ×3 (02:14→11:29)
[2017-08-09 05:43] LABS: Hematocrit [HCT] 34.3 % (42.0-52.0); MEAN CORPUSCULAR HEMOGLOBIN 31.5 PG (27-31); MEAN PLATELET VOLUME 10.4 FL (7.4-12.2); RED BLOOD COUNT 3.81 10^6/uL (4.70-6.10)
[2017-08-09 05:55] LABS: BLOOD UREA NITROGEN 17 mg/dL (7-22); BUN/CREATININE RATIO 21.25 (6-20)
[2017-08-09 07:28] VITALS: RESP 16
--- NOTE | 2017-08-09 07:55 | ORTHO.PROG ---
Last Taken Vital Signs: Vital Signs - Last Taken Temperature 97.0 F 08/09/17 07:27 Pulse Rate 81 08/09/17 07:27 Respiratory Rate 16 08/09/17 07:27 Blood Pressure 134/97 08/09/17 07:27 Pulse Ox 92 08/09/17 07:27 Subjective: Patient doing relatively well pain controlled on oral medications but mobilization difficult since he has had both knees operated with a unicompartmental knee replacement Objective: Dressings are clean and dry right dressing and incision clean and dry no evidence of problems motor and sensory exam is nonfocal with good pulses brisk refill he doesn't have any marked edema he has a pain bilaterally. No popliteal or adductor hiatus or femoral vein pain with palpation Laboratory Results 08/09/17 08/09/17 Range/Units 04:34 04:34 WBC 10.69 (4.8-10.8) 10^3/uL RBC 3.81 L (4.70-6.10) 10^6/uL Hgb 12.0 L (14.0-18.0) g/dL Hct 34.3 L (42.0-52.0) % MCV 90.0 (80-90) FL MCH 31.5 H (27-31) PG MCHC 35.0 (33-37) g/dL RDW Std Deviation 43.6 (39-50) fL RDW Coeff of Dinesh 13.7 (11.5-14.5) % Plt Count 230 (140-350) 10*3/uL MPV 10.4 (7.4-12.2) FL Sodium 135 (135-145) meq/L Potassium 4.4 (3.8-5.2) meq/L Chloride 98 (98-112) meq/L Carbon Dioxide 24 (23-33) meq/L Anion Gap 13 (5-20) BUN 17 (7-22) mg/dL Creatinine 0.8 (0.70-1.50) mg/dL Estimated GFR > 60 (>60 ml/min/1.73m(2)) BUN/Creatinine Ratio 21.25 H (6-20) Glucose 110 (78-110) mg/dL Calculated Osmolality 282.0 (267-292) mOsm/kg Calcium 8.7 (8.7-10.7) mg/dL Vital Signs (24 hrs) Temp Pulse Resp BP Pulse Ox 04/05/18 07:27 97.0 F 81 16 134/97 92 08/09/17 04:53 97.8 F 81 20 138/75 91 08/09/17 00:07 97.7 F 83 18 136/86 92 08/08/17 20:23 98.9 F 86 20 144/91 91 08/08/17 16:42 98.4 F 86 16 139/89 96 08/08/17 11:54 97.7 F 77 16 136/87 94 Assessment: Right unicompartmental knee replacement approximately one week ago with a washout and exchange polyethylene approximately 2 weeks out from his initial index procedure. Left unicompartmental knee replacement postoperative day #2 doing well Plan: Continue with current plan would DVT prophylaxis with aspirin and pneumatic sequential devices, continued to U with physical therapy and occupational therapy and pain control
[2017-08-09] MEDS: DOCUSATE 100 MG CAPSULE PO SCH (10:07)
[2017-08-09] MEDS: CARVEDILOL 12.5 MG TABLET PO SCH (10:07)
[2017-08-09] MEDS: Olmesartan Tab 40 MG TAB PO SCH (10:08)
[2017-08-09] MEDS: ESCITALOPRAM 10 MG TABLET PO SCH (10:08)
[2017-08-09] MEDS: ASPIRIN 325 MG EC TABLET PO SCH (10:08)
[2017-08-09] MEDS: Vitamin E Cap 400 IU CAP PO SCH (10:08)
[2017-08-09] MEDS: Multivitamin Tab 1 TAB PO SCH (10:09)
[2017-08-09] MEDS: NIFEdipine 30 MG ER 24H TABLET PO SCH (10:09)
[2017-08-09 11:26] VITALS: BP 108/74; TEMP 96.7; O2SAT 95
[2017-08-09] MEDS ORDERED: Pneumococcal Vacc 13 Syringe 0.5 ML DISP.SYRIN IM ONE (12:33)
--- NOTE | 2017-08-09 12:39 | PT.PROG ---
Progress Note Progress Note: S: Pt reports that he is doing well this morning and feels that he is ready to perform stairs. O: Tx consisted of: amb x 150 ft with SBA x 1 and use of walker; pt received MHP x 20 min to B knees f/b instruction in ther ex with 10x each of the following - quad sets, heel slides, SLR, SAQ, hip abd/add, and STS. Pt received manual therapy for knee flexion and extension to B knees. Pt performed 1 flight of stairs with walker and CGA x 1 for safety - pt required 1 verbal cue for walker placement. Following stairs, pt had a 5 minute seated rest break before he ambulated x 150 ft to room with SBA x 1. Pt was left in bathroom with call light and nursing staff was notified. A: Pt has met all goals for therapy. P: D/c from physical therapy as goals are met.
--- NOTE | 2017-08-09 12:40 | DCSUMMARY ---
Hospitalization Summary Hospital Course: Final Discharge Diagnosis: Current Visit Problems Problem Status Onset Code Status post left knee replacement Acute Z96.652 Hypertension Acute I10 Elevated WBCs Acute D72.829 Diagnostic Data, Laboratory Data, and Procedures of Signifigance: CBC and BMP 08/09/17 04:34 08/09/17 04:34 History and Physical pertinent to Admission: Past Medical History Medical History: 1. HTN. 2. hypercholesterolemia. 3. osteoarthritis. 4. low testosterone. 5. GERD. 6. Depression, well controlled. Surgical History: 1. outside of knee surgery today, none Pertinent Family History: significant for heart attack in in father, and stroke in mother. Past Social History: almost 10 years. second marriage. had one son who is . no smoking tobacco, drinks occasional alcohol. lives in [place], [place]. Tobacco Use: Former Smoker In the Past 12 Months, Have Used or Abuse Any of the Following Substance: None Course of Hospitalization: This very nice 60-year-old gentleman who underwent bilateral knee replacement first he did his right side a comes back this time to do a stat left total knee hospitalist consult did for hypertension which remains stable we'll continue his home meds in regards to his left total knee replacement the Dr. Krishnamurthy the told the nurse Nilay that he could be going home and also he was cleared by physical therapy he will resume his usual medications anticoagulation and pain meds as per Dr. Krishnamurthy prescriptions were handed to him or transmitted by the orthopedic surgeon patient was seen and examined today is doing pretty well he knows he will be going home today and is very excited On the date of discharge, the patient was examined: Gen.: No acute distress, alert, nontoxic Heart: Regular rate and rhythm, no murmurs, clicks, gallops, or rubs Lungs: Clear to auscultation bilaterally, breathing is nonlabored Abdomen/GI: Normal tones on auscultation, soft, nontender, nondistended Musculoskeletal/extremities: No clubbing, cyanosis, or edema Vitals reviewed and are listed below Vital Signs (24 hrs) Temp Pulse Resp BP Pulse Ox 08/09/17 11:24 96.7 F L 84 16 108/74 95 08/09/17 07:27 97.0 F 81 16 134/97 92 08/09/17 04:53 97.8 F 81 20 138/75 91 08/09/17 00:07 97.7 F 83 18 136/86 92 08/08/17 20:23 98.9 F 86 20 144/91 91 08/08/17 16:42 98.4 F 86 16 139/89 96 Assessment and Plan: 1. As per discharge assessments above 2. Disposition: Home 3. Condition on discharge, stable and improved. 4. Diet: regular diet 5. Activities: resume normal activities 6. Follow-Up: 1. PCP 2. Dr. Krishnamurthy this will be arranged by him 7. Medications at the Time of Discharge: Home Medications 3 Medication Instructions Recorded Confirmed Type Calcium Carbonate [Calcium] 1 tab PO QD #90 tab 12/28/14 08/07/17 History Multivitamin [Multivitamins] 1 tab PO DAILY #90 tab 12/28/14 08/07/17 History Mv-Min/Vit C/Glu/Rose HCl/Hc124 1 tab PO QD #30 tab 03/23/15 08/07/17 History [Airborne Tablet Chewable] carvedilol 25 mg tablet 25 mg PO BID #180 tab 01/15/17 08/07/17 Rx olmesartan 40 mg tablet 40 mg PO QDAY #90 tab 01/15/17 08/07/17 Rx cetirizine 10 mg capsule 10 mg PO DAILY cap 04/25/17 08/07/17 History cholecalciferol (vitamin D3) 5,000 5,000 unit PO QD #90 cap 04/25/17 08/07/17 History unit capsule vitamin E mixed 400 unit capsule 400 unit PO QD #30 cap 04/25/17 08/07/17 History rosuvastatin 10 mg tablet 10 mg PO QDAY #90 tab 05/04/17 08/07/17 Rx escitalopram 20 mg tablet 20 mg PO DAILY #90 tab 05/21/17 08/07/17 Rx nifedipine ER 30 mg 30 mg PO BID #10 tab 05/25/17 08/07/17 Rx tablet,extended release 24 hr Albuterol Sulfate [Proair Hfa] 2 puff INH ONCE PRN 07/26/17 08/07/17 History Aspirin EC 325 mg PO BID tab 07/28/17 08/07/17 Rx HYDROcodone/APAP 7.5/325 Tab 1 - 2 tab PO Q4H PRN #50 tab 08/03/17 08/07/17 Rx [Craig 7.5/325 Tab] Esomeprazole Magnesium [Nexium] 20 mg PO 08/07/17 History Aspirin EC 325 mg PO BID tab 08/09/17 Rx HYDROcodone/APAP 7.5/325 Tab 1 - 2 tab PO Q4H PRN #60 tab 08/09/17 Rx [Craig 7.5/325 Tab] 8. Time, care, counseling and coordination of care for this discharge is greater than 30 minutes. Exam - Vitals Vital Signs: Vital Signs Temperature 96.7 F Temperature Source Temporal Artery Scan Pulse Rate [Pulse Oximeter] 84 Pulse Rate 79 Respiratory Rate 16 Blood Pressure [Right Arm] 108/74 Blood Pressure 126/89 Pulse Ox 95 Oxygen Flow Rate .5 Oxygen Delivery Method Room Air Height 5 ft 9 in Weight 224 lb 6.4 oz Patient Problems - Patient Problem List (1) Hypertension Current Visit: Yes Status: Acute Code(s): I10 - Essential (primary) hypertension Category: Medical (2) Status post left knee replacement Current Visit: Yes Status: Acute Code(s): Z96.652 - Presence of left artificial knee joint Category: Medical (3) Bilateral primary osteoarthritis of knee Current Visit: No Status: Chronic Onset Date: 11/03/15 Code(s): M17.0 - Bilateral primary osteoarthritis of knee Category: Medical (4) Elevated WBCs Current Visit: Yes Status: Acute Code(s): D72.829 - Elevated white blood cell count, unspecified Category: Medical
--- NOTE | 2017-08-13 11:49 | OTI REPORT ---
Thank you for the referral of Adtiya Fisher. He was seen on 08/08/17 for an occupational therapy inpatient evaluation status post left unilateral knee replacement. SUBJECTIVE: The patient is a 66-year-old male who is being seen secondary to having a unilateral knee replacement. Prior to admission he was independent with all ADLs. The patient does have a higher toilet seat at home as well as a walk-in shower. PAST MEDICAL HISTORY: Past medical history can be found in the patient's medical record. OBJECTIVE FINDINGS: Activities of daily living: Today the patient was able to demonstrate dress self after set up with enough flexibility to not need adaptive devices. Transfers: Functional transfers were assessed and the patient requires contact guard assist but is doing well with his sit to stands. Range of motion: Upper extremity range of motion is within functional limits. Strength: Strength throughout upper extremities is within functional limits. ASSESSMENT: At this time the patient demonstrated the ability to complete functional transfers with contact guard assist. He was able to complete lower extremity dressing independently without adaptive equipment. TREATMENT PLAN: Patient will be discharged from OT services at this time. No further treatment is necessary. INITIAL TREATMENT: Treatment today consisted of the initial evaluation activities only. MUNA
== END 2017-08-09 15:11 | disposition home or self-care (01) | DRG 470 ==
LOC: OPS 06:13 → MED/SURG 12:03
PROVIDERS: ADMIT Orthopaedic Surgery; ATTEND Orthopaedic Surgery